=== PATIENT | male | born 1935 | race Caucasian/White ===

== ENCOUNTER 2019-06-13 10:09 | Day surgery (SDC) | payer MEDICARE, OTHER ==
[~2019-06-13] VITALS: Ht 165.1 cm; Wt 73.5 kg
[~2019-06-13 10:09] MED LIST: CARD60TA3 PO; COLA100C5 PO; IBUP-1114 PO; LOSA50TA88 PO; METF-881 PO; MONT10TA2 PO; MULTLIQ7 PO; NS 1,000 ML IV ONE; OMEP40CA97 PO; OPTI0.5D5 OP; PROAAER10 INH; ROSU20TA5 PO; SENNA PO
[2019-06-13] MEDS ORDERED: LIDOCAINE 2% INJ 100 MG/5 ML SDV (FOR ANES.) As Ordered ONE (10:50)
[2019-06-13] MEDS ORDERED: propofoL 200 MG/20 ML VIAL As Ordered ONE (10:50)
[2019-06-13] MEDS ORDERED: fentaNYL 100 MCG/2 ML INJECTION (J3010) As Ordered ONE (11:17)
--- NOTE | 2019-06-13 12:18 | ROOR ---
Patient Name: Tim Reilly Procedure Date: 06/13/2019 11:18 AM Date of : 1935 Age: 84 Room: [facility] Gender: Male Note Status: Finalized Procedure: Upper GI endoscopy Indications: Iron deficiency anemia Providers: Kodak Cabrera MD Referring MD: [facility], Admin. Requesting Provider: Medicines: Monitored Anesthesia Care Complications: No immediate complications. Procedure: Pre-Anesthesia Assessment: - Prior to the procedure, a History and Physical was performed, and patient medications and allergies were reviewed. The patient is competent. The risks and benefits of the procedure and the sedation options and risks were discussed with the patient. All questions were answered and informed consent was obtained. Patient identification and proposed procedure were verified by the physician, the nurse and the anesthesiologist in the procedure room. Mental Status Examination: alert and oriented. Airway Examination: normal oropharyngeal airway and neck mobility. Respiratory Examination: clear to auscultation. CV Examination: normal. Prophylactic Antibiotics: The patient does not require prophylactic antibiotics. Prior Anticoagulants: The patient has taken no previous anticoagulant or antiplatelet agents. ASA Grade Assessment: III - A patient with severe systemic disease. After reviewing the risks and benefits, the patient was deemed in satisfactory condition to undergo the procedure. The anesthesia plan was to use monitored anesthesia care (MAC). Immediately prior to administration of medications, the patient was re-assessed for adequacy to receive sedatives. The heart rate, respiratory rate, oxygen saturations, blood pressure, adequacy of pulmonary ventilation, and response to care were monitored throughout the procedure. The physical status of the patient was re-assessed after the procedure. The Endoscope was introduced through the mouth, and advanced to the second part of duodenum. The Endoscope was introduced through the mouth, and advanced to the second part of duodenum. The upper GI endoscopy was accomplished without difficulty. The patient tolerated the procedure well. Findings: LA Grade B (one or more mucosal breaks greater than 5 mm, not extending between the tops of two mucosal folds) esophagitis with no bleeding was found 34 to 38 cm from the incisors. A medium-sized hiatal hernia was present. A large, infiltrative and ulcerated, circumferential mass with oozing bleeding and stigmata of recent bleeding was found in the gastric antrum and at the pylorus. Biopsies were taken with a cold forceps for histology. Verification of patient identification for the specimen was done by the physician and nurse using the patient's name, date and medical record number. Estimated blood loss was minimal. A malignant-appearing, intrinsic severe stenosis was found in the prepyloric region of the stomach. This was non-traversed with regular endoscope, so an ultrathin scope used to traverse. Biopsies were taken with a cold forceps for histology. The second portion of the duodenum was normal. Impression: - LA Grade B reflux esophagitis. - Medium-sized hiatal hernia. 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 Biopsied. - Gastric stenosis was found in the prepyloric region of the stomach. Biopsied. - Normal second portion of the duodenum. Recommendation: - Patient has a contact number available for emergencies. The signs and symptoms of potential delayed complications were discussed with the patient. Return to normal activities tomorrow. Written discharge instructions were provided to the patient. - Full liquid diet, pureed diet and soft diet. - Continue present medications. - Use Protonix (pantoprazole) 40 mg PO twice daily - to be taken in morning (1/2 hour before breakfast) and at bedtime ( atleast 3 hours after last meal) for 4 weeks. - Return to GI clinic 1 - 2 weeks. Please call GI clinic @ [phone] for apppointment date and time. - Check hemogram with white blood cell count and platelets weekly. - Return to primary care physician as previously scheduled. Kodak Cabrera MD Kodak Cabrera MD 06/13/2019 12:18:31 PM Electronically signed by Kodak Cabrera MD Number of Addenda: 0 Note Initiated On: 06/13/2019 11:18 AM Estimated Blood Loss: Estimated blood loss was minimal.
[2019-06-13 12:25] VITALS: BP 155/83
--- NOTE | 2019-06-13 13:34 | ROOR ---
Patient Name: Tim Reilly Procedure Date: 06/13/2019 11:19 AM Date of : 1935 Age: 84 Room: [facility] Gender: Male Note Status: Finalized Procedure: Colonoscopy Indications: Iron deficiency anemia Providers: Kodak Cabrera MD Referring MD: [facility] Mickey ATK[facility], Admin. Requesting Provider: Medicines: Monitored Anesthesia Care Complications: No immediate complications. Procedure: Pre-Anesthesia Assessment: - Prior to the procedure, a History and Physical was performed, and patient medications and allergies were reviewed. The patient is competent. The risks and benefits of the procedure and the sedation options and risks were discussed with the patient. All questions were answered and informed consent was obtained. Patient identification and proposed procedure were verified by the physician, the nurse and the anesthesiologist in the procedure room. Mental Status Examination: alert and oriented. Airway Examination: normal oropharyngeal airway and neck mobility. Respiratory Examination: clear to auscultation. CV Examination: normal. Prophylactic Antibiotics: The patient does not require prophylactic antibiotics. Prior Anticoagulants: The patient has taken no previous anticoagulant or antiplatelet agents. ASA Grade Assessment: III - A patient with severe systemic disease. After reviewing the risks and benefits, the patient was deemed in satisfactory condition to undergo the procedure. The anesthesia plan was to use monitored anesthesia care (MAC). Immediately prior to administration of medications, the patient was re-assessed for adequacy to receive sedatives. The heart rate, respiratory rate, oxygen saturations, blood pressure, adequacy of pulmonary ventilation, and response to care were monitored throughout the procedure. The physical status of the patient was re-assessed after the procedure. The Colonoscope was introduced through the anus and advanced to the cecum, identified by appendiceal orifice and ileocecal valve. The colonoscopy was performed without difficulty. The patient tolerated the procedure well. The quality of the bowel preparation was poor. The ileocecal valve, appendiceal orifice, and rectum were photographed. Scope insertion time was 3 minutes. Scope withdrawal time was 6 minutes. The total duration of the procedure was 9 minutes. Findings: The perianal and digital rectal examinations were normal. A 4 mm polyp was found in the transverse colon. The polyp was sessile. The polyp was removed with a cold biopsy forceps. Resection and retrieval were complete. Verification of patient identification for the specimen was done by the physician and nurse using the patient's name, date and medical record number. Estimated blood loss was minimal. Copious quantities of semi-liquid stool was found from sigmoid to cecum, interfering with visualization. Lavage of the area was performed using a large amount of sterile water, resulting in incomplete clearance with fair visualization. There is no endoscopic evidence of bleeding in the entire colon. Multiple small and large-mouthed diverticula were found in the sigmoid colon. There was no evidence of diverticular bleeding. Non-bleeding external and internal hemorrhoids were found during retroflexion. The hemorrhoids were medium-sized. Impression: - Preparation of the colon was poor. - One 4 mm polyp in the transverse colon, removed with a cold biopsy forceps. Resected and retrieved. - Stool from sigmoid to cecum. - Moderate diverticulosis in the sigmoid colon. There was no evidence of diverticular bleeding. - Non-bleeding external and internal hemorrhoids. Recommendation: - Patient has a contact number available for emergencies. The signs and symptoms of potential delayed complications were discussed with the patient. Return to normal activities tomorrow. Written discharge instructions were provided to the patient. - Full liquid diet, pureed diet and soft diet. - Continue present medications. - Repeat colonoscopy is not recommended due to current age (66 years or older) for screening purposes and depending on clinical and functional status. - Return to GI clinic 1 - 2 weeks. Please call GI clinic @ [phone] for apppointment date and time. - Return to primary care physician. Kodak Cabrera MD Kodak Cabrera MD 06/13/2019 1:33:35 PM Electronically signed by Kodak Cabrera MD Number of Addenda: 0 Note Initiated On: 06/13/2019 11:19 AM Estimated Blood Loss: Estimated blood loss was minimal.
== END 2019-06-13 13:42 | disposition home or self-care (01) ==
LOC: M OPP 10:09
PROVIDERS: ATTEND Internal Medicine Gastroenterology
DX: K64.0 First degree hemorrhoids (principal); D12.3 Benign neoplasm of transverse colon; K57.30 Diverticulosis of large intestine without perforation or abscess without bleeding; D50.9 Iron deficiency anemia, unspecified; K21.0 Gastro-esophageal reflux disease with esophagitis; K44.9 Diaphragmatic hernia without obstruction or gangrene; D49.0 Neoplasm of unspecified behavior of digestive system; K31.1 Adult hypertrophic pyloric stenosis; Z79.84 Long term (current) use of oral hypoglycemic drugs; Z79.899 Other long term (current) drug therapy; Z88.5 Allergy status to narcotic agent; Z88.1 Allergy status to other antibiotic agents; Z88.8 Allergy status to other drugs, medicaments and biological substances; Z87.891 Personal history of nicotine dependence
CPT/HCPCS: 43239; 45380; 88305; J3010

== ENCOUNTER → 2019-06-20 | Outpatient (CLI) | payer MEDICARE, OTHER ==
[~2019-06-20] MED LIST changes: -NS 1,000 ML IV ONE
[2019-06-20 16:41] LABS: BASO # 0.1 10^3/uL (0.0-0.2); BASO % 1.2 % (0.0-1.0); EOS # 0.3 10^3/uL (0.0-0.5); EOS % 3.5 % (0.0-3.0); HEMATOCRIT 37.4 % (42.0-52.0); HEMOGLOBIN 11.3 g/dl (13.5-17.5); LYMPH # 1.1 10^3/uL (1.5-5.0); LYMPH % 13.9 % (24.0-44.0); MEAN CORPUSCULAR HEMOGLOBIN 26.1 pg (27.0-33.0); MEAN CORPUSCULAR HGB CONC 30.2 g/dl (32.0-36.5); MEAN CORPUSCULAR VOLUME 86.4 fl (80.0-96.0); MONO # 0.9 10^3/uL (0.0-0.8); MONO % 11.8 % (0.0-5.0); NEUTROPHILS # 5.4 10^3/uL (1.5-8.5); NEUTROPHILS % 69.3 % (36.0-66.0); PLATELET COUNT, AUTOMATED 243 10^3/uL (150-450); RED BLOOD COUNT 4.33 10^6/uL (4.30-6.10); WHITE BLOOD COUNT 7.7 10^3/uL (4.0-10.0)
[2019-06-20 17:09] LABS: PERCENT SATURATION 17.8 % (19.7-50.0)
== END ==
LOC: M LAB 14:57
PROVIDERS: ATTEND Internal Medicine Gastroenterology
DX: D50.9 Iron deficiency anemia, unspecified (principal)

== ENCOUNTER → 2019-07-02 | Outpatient (CLI) | payer MEDICARE, OTHER ==
[2019-07-02 14:17] LABS: BLOOD UREA NITROGEN 15 MG/DL (7-18); GLOMERULAR FILTRATION RATE > 60.0 (>35)
== END ==
LOC: M LAB 11:55
PROVIDERS: ATTEND Internal Medicine Gastroenterology
DX: D50.9 Iron deficiency anemia, unspecified (principal)

== ENCOUNTER → 2019-07-07 | Outpatient (CLI) | payer MEDICARE, OTHER ==
[~2019-07-07] MED LIST changes: +GASTROGRAFIN SOLUTION 30ML (Q9963) As Ordered ONE; +ISOVUE-370 76% 100ML VIAL (Q9967) As Ordered ONE; -MONT10TA2 PO; +MONT10TA4 PO
--- NOTE | 2019-07-07 17:39 | REP ---
Clinical: Iron-deficiency anemia. Technique: Axial contrast enhanced images of the abdomen using oral (per protocol) and 100 ml Isovue 370 intravenous contrast material with coronal and sagittal re-formations. Findings: Lung bases are clear. Visualized heart and pericardium normal. Liver, spleen, pancreas, collapsed gallbladder, bilateral adrenal glands and kidneys are normal. Incidental 9 mm simple right renal cyst noted. Hiatal hernia is identified and gastroesophageal junction and the stomach is moderately distended to the level of the pylorus. The remainder of the visualized small large bowel is unremarkable. No ascites. No adenopathy. Abdominal aorta without aneurysm or dissection. Musculoskeletal structures demonstrate age-related changes. Impression: 1. Small/moderate hiatal hernia. 2. Gastric distension to the level of a prominent pylorus warrants further investigation including upper GI exam and/or endoscopy. Electronically Signed by Tarik Walden MD 07/07/2019 05:31 P
== END ==
LOC: M RAD 15:29
PROVIDERS: ATTEND Internal Medicine Gastroenterology
DX: K44.9 Diaphragmatic hernia without obstruction or gangrene (principal); K31.89 Other diseases of stomach and duodenum; D50.9 Iron deficiency anemia, unspecified
CPT/HCPCS: 74160; Q9963; Q9967

== ENCOUNTER 2019-07-13 10:45 | Inpatient (IN) | payer MEDICARE, OTHER ==
[~2019-07-13] VITALS: Ht 165.1 cm; Wt 74.5 kg
[~2019-07-13 10:45] MED LIST changes: -GASTROGRAFIN SOLUTION 30ML (Q9963) As Ordered ONE; -ISOVUE-370 76% 100ML VIAL (Q9967) As Ordered ONE
[2019-07-13 11:05] VITALS: BP 128/78
[2019-07-13] MEDS ORDERED: DILT1TAB12 PO (11:53)
[2019-07-13] MEDS ORDERED: CLEAPOW10 PO (11:53)
[2019-07-13] MEDS ORDERED: IBUP40TA PO (11:53)
[2019-07-13] MEDS ORDERED: PANT-23 PO (11:53)
[2019-07-13] MEDS ORDERED: REFR0.5D8 OU (11:53)
[2019-07-13] MEDS ORDERED: REST0.05 OU (11:53)
[2019-07-13] MEDS ORDERED: METF-791 PO (11:53)
[2019-07-13] MEDS ORDERED: OMEP-221 PO (11:56)
[2019-07-13] MEDS ORDERED: D5W/0.45% SODIUM CHLORIDE 1,000 ML IV SCH (12:00)
[2019-07-13] MEDS: PANTOPRAZOLE 40MG INJ (PROTONIX) (C9113) IV SCH (12:03)
[2019-07-13 12:35] LABS: HEMATOCRIT 37.1 % (42.0-52.0); HEMOGLOBIN 11.7 g/dl (13.5-17.5); MEAN CORPUSCULAR HEMOGLOBIN 27.1 pg (27.0-33.0); MEAN CORPUSCULAR HGB CONC 31.5 g/dl (32.0-36.5); MEAN CORPUSCULAR VOLUME 86.1 fl (80.0-96.0); PLATELET COUNT, AUTOMATED 241 10^3/uL (150-450); RED BLOOD COUNT 4.31 10^6/uL (4.30-6.10); WHITE BLOOD COUNT 7.1 10^3/uL (4.0-10.0)
[2019-07-13 12:45] LABS: INR 0.99; PROTHROMBIN TIME 12.8 SECONDS (11.8-14.0)
--- NOTE | 2019-07-13 12:57 | REP ---
Clinical: Nasogastric tube placement. Technique: Two supine views of the abdomen and pelvis. Findings: A nasogastric tube is identified extending below the left hemidiaphragm. Moderate fecal stasis. No obvious bowel obstruction or perforation. No obvious organomegaly. Skeletal structures demonstrate age-related degenerative changes. Impression: Nasogastric tube in satisfactory position. Electronically Signed by Tarik Walden MD 07/13/2019 12:49 P
[2019-07-13 13:00] LABS: ALBUMIN 3.1 GM/DL (3.2-5.2); ALT/SGPT 11 U/L (12-78); BILIRUBIN,TOTAL 0.2 MG/DL (0.2-1.0); BLOOD UREA NITROGEN 14 MG/DL (7-18); CALCIUM LEVEL 9.1 MG/DL (8.8-10.2); CARBON DIOXIDE LEVEL 28 MEQ/L (21-32); CHLORIDE LEVEL 106 MEQ/L (98-107); CREATININE FOR GFR 0.82 MG/DL (0.70-1.30); GLOMERULAR FILTRATION RATE > 60.0 (>35); GLUCOSE, FASTING 145 MG/DL (70-100); POTASSIUM SERUM 4.5 MEQ/L (3.5-5.1); SODIUM LEVEL 140 MEQ/L (136-145); TOTAL PROTEIN 6.1 GM/DL (6.4-8.2)
[2019-07-13] MEDS ORDERED: GLUCAGON FOR INJ 1 MG VIAL (J1610) SC PRN (13:15)
[2019-07-13] MEDS ORDERED: ACETAMINOPHEN 650 MG SUPP PR PRN (13:15)
[2019-07-13] MEDS ORDERED: GLUCOSE 4 GM CHEW TABLET PO PRN (13:15)
[2019-07-13] MEDS ORDERED: ONDANSETRON 4MG/2ML VIAL (J2405) IV PRN (13:15)
[2019-07-13] MEDS ORDERED: DEXTROSE 50% 50 ML SYRINGE IV PRN (13:15)
--- NOTE | 2019-07-13 13:16 | HPEPDOC ---
General Date of Admission Jul 13, 2019 at 10:45 Date of Service: Jul 13, 2019 Chief Complaint The patient is a 84-year-old male admitted with a reason for visit of Gastric Outlet Obstruction. Source: Patient, Family Exam Limitations: No limitations Timing/Duration: Other Severity: Other (2 years, not applicable) Associated Symptoms: Other (stomach problems) History of Present Illness This is 84 years old white male with past medical history of diabetes mellitus, hypertension, hyperlipidemia, has been experiencing his stomach problems including regurgitation since last 2 years and was followed up by his [facility] care doctor and started on PPIs without any relief until the CAT scan was obtained which showed gastric outlet obstruction. Patient had a EGD done by Dr. Heriberto Chan found to have very edematous pyloric ulceration negative for malignancy but did not respond to PPI. Hence, he is been sent back to the hospitalist direct admission for repeat EGD and possible pyloric stent placement. Home Medications Scheduled Albuterol Sulfate (Proair Hfa) 8.5 Gm Hfa.aer.ad, 2 PUFF INH BID, (Reported) Cyclosporine (Restasis) 0.05% Droperette, 1 DROP OU BID, (Reported) Diltiazem HCl (Diltiazem HCl) 60 Mg Tablet, 60 MG PO BID, (Reported) Losartan Potassium (Losartan Potassium) 50 Mg Tablet, 50 MG PO DAILY, (Reported) Metformin HCl (Metformin HCl ER) 500 Mg Tab.er.24h, 500 MG PO DAILY, (Reported) TAKES AT NOON Montelukast Sodium (Montelukast Sodium) 10 Mg Tablet, 10 MG PO DAILY, (Reported) Multivit-Minerals/Ferrous Fum (Multivitamin Liquid) 9 Mg/15 Ml Liquid, 15 ML PO QPM, (Reported) Omeprazole (Omeprazole) 40 Mg Capsule.dr, 40 MG PO DAILY, (Reported) PATIENT AND STATE HE IS TAKING BOTH OMEPRAZOLE AND PANTOPRAZOLE Pantoprazole Sodium (Pantoprazole Sodium) 40 Mg Tablet.dr, 40 MG PO BID, (Reported) Polyethylene Glycol 3350 (Clearlax) 116 Gm Powder, 8.5 GM PO DAILY, (Reported) Rosuvastatin Calcium (Rosuvastatin Calcium) 20 Mg Tablet, 20 MG PO DAILY, (Reported) TAKES AT NOON Scheduled PRN Carboxymethylcellulose Sodium (Refresh Tears) 15 Ml Drops, 1 DROP OU QID PRN for DRY EYES, (Reported) Ibuprofen (Ibuprofen) 400 Mg Tablet, 400 MG PO TID PRN for PAIN, (Reported) Allergies Coded Allergies: cephalexin (Verified Allergy, Intermediate, rash, 07/11/19) ciprofloxacin (Verified Allergy, Mild, rash, 07/11/19) doxycycline (Verified Allergy, Mild, rash, 07/11/19) Gadolinium-Containing Contrast Medi (Verified Allergy, Unknown, rash, 07/11/19) codeine (Verified Adverse Reaction, Unknown, didnt sleep for days, 07/11/19) Past Medical History Medical History Diabetes mellitus, hypertension, hyperlipidemia Surgical History None Family History Significant Family History: No pertinent family hx Social History * Smoker: former Smoker Alcohol: Denies Drugs: denies A-FIB/CHADSVASC A-FIB History Current/History of A-Fib/PAF?: No Review of Systems Constitutional: Denies: Chills, Fever, Malaise, Night Sweats, Weakness, Fatigue, Weight Loss, Lethargy, Other Eyes: Denies: Pain, Vision change, Conjunctivae inflammation, Eyelid inflammation, Redness, Other ENT: Denies: Head Aches, Ear Pain, Dysphagia, Sinus Congestion, Post Nasal Drip, Sore Throat, Epistaxis, Other Symptoms Cardiovascular: Denies: Chest Pain, Palpitations, Orthopnea, Paroxysmal Noc. Dyspnea, Edema, Lt Headedness, Other Symptoms Gastrointestinal: Reports: Other Symptoms (regurgitation,slow absorption and stomach distention) Genitourinary: Denies: Dysuria, Frequency, Incontinence, Hematuria, Retention, Other Symptoms Hematologic: Denies: Bruising, Bleeding Excessively, Petecchia, Purpura, Enl arged Lymph Nodes, Other Hematologic Endocrine: Denies: Polydipsia, Polyphagia, Polyuria, Heat Intolerance, Cold Intolerance, Other Endocrine Sx Musculoskeletal: Denies: Neck Pain, Back Pain, Shoulder Pain, Arm Pain, Hand Pain, Leg Pain, Foot Pain, Joint Pain, Muscle Pain, Spasms, Other Symptoms Neurological: Denies: Weakness, Numbness, Incoordination, Change in speech, Confusion, Seizures, Other Symptoms Psych: Denies: Mood Normal, Anxiety, Depression, Memory Issues, Thoughts of Self Harm, Anger, Thoughts of Harming Other, Other Psych Physical Examination General Exam: Positive: Alert, Cooperative Eye Exam: Positive: PERRLA, Conjunctiva & lids normal ENT Exam: Positive: Atraumatic, Mucous membr. moist/pink Neck Exam: Positive: Supple Chest Exam: Positive: Clear to auscultation Heart Exam: Positive: Rate Normal, Normal S1, Normal S2 Abdomen Exam: Positive: Normal bowel sounds Extremity Exam: Positive: Normal pulses Skin Exam: Positive: Nl turgor and temperature Neuro Exam: Positive: Sensation Intact, Cranial Nerves 3-12 NL Psych Exam: Positive: Mood NL, Oriented x 3 Vital Signs Vital Signs Date Time Temp Pulse Resp B/P (MAP) Pulse Ox O2 Delivery O2 Flow Rate FiO2 07/13/19 11:05 97.2 68 18 128/78 (95) 97 Room Air Laboratory Data Labs 24H Laboratory Tests 2 07/13/19 12:23: Nucleated Red Blood Cells % (auto) 0.0, Prothrombin Time 12.8, Prothromb Time International Ratio 0.99, Anion Gap 6L, Glomerular Filtration Rate > 60.0, Calci um Level 9.1, Total Bilirubin 0.2, Aspartate Amino Transf (AST/SGOT) 13, Alanine Aminotransferase (ALT/SGPT) 11L, Alkaline Phosphatase 63, Total Protein 6.1L, Albumin 3.1L, Albumin/Globulin Ratio 1.03 CBC/BMP Laboratory Tests 07/13/19 12:23 Problems (1) Partial gastric outlet obstruction Status: Acute Problem Text: 84 years old white male with past medical history of hyperlipidemia, hypertension, diabetes mellitus, recently diagnosed with partial gastric outlet obstruction was sent by Dr. Heriberto Chan for direct admission to schedule him for EGD and stent placement tomorrow. Admit patient to Medr floor Half-normal saline 100 mL per hour Protonix 40 mg IV every 12 hours Zofran 4 mg IV every 4 hours when necessary Tylenol suppository for pain and fever Patient is completely nothing by mouth NG tube in place with low intermittent suction Will also call surgical consult with Dr. Fang to be on the case DVT prophylaxis with bilateral SCDs Activity as Tolerated (2) Hyperlipidemia Status: Chronic Problem Text: Hold by mouth meds (3) HTN (hypertension) Status: Chronic Problem Text: Hold by mouth meds Needed. Will start Cardizem as IV dose In the meantime, will monitor without any medication (4) Diabetes mellitus Status: Chronic Problem Text: Hold all by mouth meds Fingerstick blood sugar every 6 hours with coverage Plan / VTE VTE Prophylaxis Ordered?: Yes KRISTIN HILL MD Jul 13, 2019 13:16
[2019-07-13 14:00] VITALS: BP 126/72
[2019-07-13] MEDS: NS 0.45% 1,000 ML IV SCH (14:19)
[2019-07-13] MEDS: HumaLOG INSULIN (NovoLOG) PER UNIT SC SCH (18:00)
[2019-07-13] MEDS: ALBUTEROL 90 MCG/ACT 8GM HFA INHALER INH SCH (20:24)
[2019-07-13 22:00] VITALS: BP 136/78
[2019-07-14] VITALS (9 sets, daily range): BP systolic 128–154; BP diastolic 79–90
[2019-07-14] MEDS: PANTOPRAZOLE 40MG INJ (PROTONIX) (C9113) IV SCH ×2 (00:35→11:11)
[2019-07-14] MEDS: NS 0.45% 1,000 ML IV SCH ×3 (00:35→18:04)
[2019-07-14] MEDS: HumaLOG INSULIN (NovoLOG) PER UNIT SC SCH ×4 (05:45→17:54)
[2019-07-14 06:57] LABS: HEMATOCRIT 35.6 % (42.0-52.0); HEMOGLOBIN 11.7 g/dl (13.5-17.5); MEAN CORPUSCULAR HEMOGLOBIN 27.9 pg (27.0-33.0); MEAN CORPUSCULAR HGB CONC 32.9 g/dl (32.0-36.5); PLATELET COUNT, AUTOMATED 244 10^3/uL (150-450); RED BLOOD COUNT 4.19 10^6/uL (4.30-6.10)
[2019-07-14 07:21] LABS: ALT/SGPT 12 U/L (12-78); BILIRUBIN,TOTAL 0.4 MG/DL (0.2-1.0); BLOOD UREA NITROGEN 10 MG/DL (7-18); CALCIUM LEVEL 8.8 MG/DL (8.8-10.2); CARBON DIOXIDE LEVEL 25 MEQ/L (21-32); CHLORIDE LEVEL 108 MEQ/L (98-107); CREATININE FOR GFR 0.83 MG/DL (0.70-1.30); GLOMERULAR FILTRATION RATE > 60.0 (>35); GLUCOSE, FASTING 127 MG/DL (70-100); MAGNESIUM LEVEL 2.3 MG/DL (1.8-2.4); POTASSIUM SERUM 4.1 MEQ/L (3.5-5.1); SODIUM LEVEL 139 MEQ/L (136-145); TOTAL PROTEIN 6.3 GM/DL (6.4-8.2)
[2019-07-14] MEDS: ALBUTEROL 90 MCG/ACT 8GM HFA INHALER INH SCH ×2 (10:12→18:34)
--- NOTE | 2019-07-14 10:57 | IPNPDOC ---
Subjective Date Seen The patient was seen on 07/14/19. Subjective Chief Complaint/HPI Patient is comfortable. NG tube in place scheduled for EGD today General: Denies: ROS Unobtainable, Chills, Night Sweats, Fatigue, Malaise, Normal Appetite, Other Symptoms Constitutional: Denies: Chills, Fever, Malaise, Night Sweats, Weakness, Fatigue, Weight Loss, Lethargy, Other Pulmonary: Denies: Dyspnea, Cough, Pleuritic Chest Pain, Other Symptoms Cardiovascular: Denies: Chest Pain, Palpitations, Orthopnea, Paroxysmal Noc. Dyspnea, Edema, Lt Headedness, Other Symptoms Gastrointestinal: Denies: Nausea, Vomiting, Abdominal Pain, Diarrhea, Constipation, Melena, Hematochezia, Other Symptoms Musculoskeletal: Denies: Neck Pain, Back Pain, Shoulder Pain, Arm Pain, Hand Pain, Leg Pain, Foot Pain, Joint Pain, Muscle Pain, Spasms, Other Symptoms Neurological: Denies: Weakness, Numbness, Incoordination, Change in speech, Confusion, Seizures, Other Symptoms Objective Physical Examination Neck Exam: Positive: Supple Chest Exam: Positive: Clear to auscultation Heart Exam: Positive: Rate Normal, Normal S1, Normal S2 Abdomen Exam: Positive: Normal bowel sounds Extremity Exam: Positive: Normal pulses Skin Exam: Positive: Nl turgor and temperature Neuro Exam: Positive: Sensation Intact, Cranial Nerves 3-12 NL Assessment /Plan Problems (1) Partial gastric outlet obstruction Status: Acute Problem Text: 84 years old white male with past medical history of hyperlipidemia, hypertension, diabetes mellitus, recently diagnosed with partial gastric outlet obstruction was sent by Dr. Heriberto Chan for direct admission to schedule him for EGD and stent placement today. Half-normal saline 100 mL per hour Protonix 40 mg IV every 12 hours Zofran 4 mg IV every 4 hours when necessary Tylenol suppository for pain and fever Patient is completely nothing by mouth pt is scheduled for EGD and possible pyloric stent placement today by GI Dr. Copeland was called yesterday for consultation surgical evaluation (2) HTN (hypertension) Status: Chronic Problem Text: Will start Cardizem as IV dose In the meantime, will monitor without any medication (3) Hyperlipidemia Status: Chronic Problem Text: Hold home meds Restart once patient is taken oral meds (4) Diabetes mellitus Status: Chronic Problem Text: Hold all by mouth meds Fingerstick blood sugar every 6 hours with coverage Plan/VTE VTE Prophylaxis Ordered?: Yes VS, I&O, 24H, Fishbone Vital Signs/I&O Vital Signs Date Time Temp Pulse Resp B/P (MAP) Pulse Ox O2 Delivery O2 Flow Rate FiO2 07/14/19 08:00 97.8 73 20 154/80 (104) 94 07/14/19 06:00 Room Air I&O- Last 24 Hours up to 6 AM 07/14/19 06:00 Intake Total 1900 ml Output Total 1800 ml Balance 100 ml Laboratory Data 24H LABS Laboratory Tests 2 07/13/19 12:23: Nucleated Red Blood Cells % (auto) 0.0, Prothrombin Time 12.8, Prothromb Time International Ratio 0.99, Anion Gap 6L, Glomerular Filtration Rate > 60.0, Calcium Level 9.1, Total Bilirubin 0.2, Aspartate Amino Transf (AST/SGOT) 13, Alanine Aminotransferase (ALT/SGPT) 11L, Alkaline Phosphatase 63, Total Protein 6.1L, Albumin 3.1L, Albumin/Globulin Ratio 1.03 07/13/19 18:19: Bedside Glucose (Misc Panel) 99 07/14/19 00:10: Bedside Glucose (Misc Panel) 116H 07/14/19 05:30: Bedside Glucose (Misc Panel) 135H 07/14/19 06:20: Nucleated Red Blood Cells % (auto) 0.0, Anion Gap 6L, Glomerular Filtration Rate > 60.0, Calcium Level 8.8, Magnesium Level 2.3, Total Bilirubin 0.4#, Aspartate Amino Transf (AST/SGOT) 14, Alanine Aminotransferase (ALT/SGPT) 12, Alkaline Phosphatase 65, Total Protein 6.3L, Albumin 3.0L, Albumin/Globulin Ratio 0.91L CBC/BMP Laboratory Tests 07/13/19 12:23 07/14/19 06:20 KRISTIN HILL MD Jul 14, 2019 10:57
--- NOTE | 2019-07-14 13:38 | GIPN ---
[facility] GI Progress Note GI Progress Note DATE: Jul 14, 2019 Interval history: Patient was recently seen in GI clinic for persistent symptoms of abdominal bloating, inability to tolerate oral diet. So patient was recommended CT abdomen and repeat EGD. The CT scan showed significantly distended stomach and pyloric region stenosis, no obvious distant metastatic lesions and no lymphadenopathy. Patient was recommended admission with NG tube placement, lavage to clear gastric contents prior to planned EGD. Patient currently denies any new GI sym ptoms. Exam: Vitals: reviewed General: Alert and oriented x 3, not in distress. NG tube in place. Abdomen: non-distended, no surgical scars, soft, non-tender, no palpable masses, normal bowel sounds heard. Labs: reviewed. Imaging: reviewed. 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 Recommendations: -- Patient educated about the test results, possible differential diagnoses and All questions answered. -- Continue NPO for now. -- IV PPI for now. -- In view of the persistent gastric outlet obstruction features even on maximum acid suppressive therapy, Patient is recommended EGD with possible dilation +/- pyloric stent placement. -- The procedure, indications, risks (bleeding, perforation, infection, hypotension, respiratory depression, allergy, need for endotracheal intubation, surgery, colostomy, cardiac arrest, even ), benefits, limitations (e.g., missing a lesion), and all other alternatives (including no intervention) were explained to the patient who understood and agreed for the procedure. -- Follow operative notes for post procedure recommendations. Plan of care discussed with patient and primary team. Patient verbalized understanding and agreed with the plan. Allergies Coded Allergies: cephalexin (Verified Allergy, Intermediate, rash, 07/11/19) ciprofloxacin (Verified Allergy, Mild, rash, 07/11/19) doxycycline (Verified Allergy, Mild, rash, 07/11/19) Gadolinium-Containing Contrast Medi (Verified Allergy, Unknown, rash, 07/11/19) codeine (Verified Adverse Reaction, Unknown, didnt sleep for days, 07/11/19) Current Medications Current Medications Medications (Trade) Dose Ordered Sig/Bette Route PRN Reason Start Time Stop Time Status Last Admin Dose Admin Acetaminophen (Tylenol Suppository) 650 mg Q4HP PRN [place] PAIN / FEVER 07/13/19 13:15 Albuterol Sulfate (Proventil, Ventolin Hfa) 2 puff BID INH 07/13/19 21:00 07/14/19 10:12 Dextrose (Dextrose 50%) 25 ml ASDIRECTED PRN IV SEE LABEL COMMENTS 07/13/19 13:15 Dextrose/Sodium Chloride 1,000 ml @ 100 mls/hr Q10H IV 07/13/19 12:00 07/13/19 13:07 DC 07/13/19 11:56 Glucagon (Glucagon) 1 mg ASDIRECTED PRN SC SEE LABEL COMMENTS 07/13/19 13:15 Glucose (Glucose) 16 GM ASDIRECTED PRN PO SEE LABEL COMMENTS 07/13/19 13:15 Home Med (Med Rec Complete!) ASDIRECTED XX 07/13/19 12:00 07/13/19 12:03 DC Insulin Human Lispro (HumaLOG INSULIN) SEE PROTOCOL TABLE Q6H SC 07/13/19 18:00 Ondansetron HCl (ZOFRAN INJection) 4 mg Q4HP PRN IV NAUSEA OR VOMITING 07/13/19 13:15 Pantoprazole Sodium (Protonix) 40 mg Q12H IV 07/13/19 12:00 07/14/19 11:11 Sodium Chloride 1,000 ml @ 100 mls/hr Q10H IV 07/13/19 14:00 07/14/19 10:44 VS,Fishbone, I+O VS, Fishbone, I+O Laboratory Tests 07/14/19 06:20 Vital Signs Date Time Temp Pulse Resp B/P (MAP) Pulse Ox O2 Delivery O2 Flow Rate FiO2 07/14/19 08:00 97.8 73 20 154/80 (104) 94 07/14/19 06:00 Room Air I&O- Last 24 Hours up to 6 AM 07/14/19 06:00 Intake Total 1900 ml Output Total 1800 ml Balance 100 ml GORDON WASHBURN MD Jul 14, 2019 13:38
--- NOTE | 2019-07-14 17:19 | REP ---
Clinical: ERCP. Technique: Intraoperative fluoroscopic imaging using portable C-arm technique. Findings: Images from the attempted ERCP examination demonstrate distended loops of bowel and endoscope maintained within the stomach. Total fluoroscopic time 21 seconds. Impression: Images demonstrate attempted ERCP. Moderately dilated distended loops of bowel noted. Electronically Signed by Tarik Walden MD 07/14/2019 05:10 P
[2019-07-14] MEDS ORDERED: ONDANSETRON 4MG/2ML VIAL (J2405) IV PRN (17:45)
[2019-07-14] MEDS: LR 1,000 ML IV SCH ×2 (17:45→17:54)
[2019-07-14] MEDS: MEROPENEM INJ 1 GM in IV 1 EA IV SCH (18:04)
[2019-07-14 18:17] LABS: BASO # 0.1 10^3/uL (0.0-0.2); BASO % 0.8 % (0.0-1.0); EOS # 0.1 10^3/uL (0.0-0.5); EOS % 0.8 % (0.0-3.0); HEMATOCRIT 38.1 % (42.0-52.0); HEMOGLOBIN 12.2 g/dl (13.5-17.5); LYMPH # 0.9 10^3/uL (1.5-5.0); LYMPH % 9.4 % (24.0-44.0); MEAN CORPUSCULAR HEMOGLOBIN 27.4 pg (27.0-33.0); MEAN CORPUSCULAR VOLUME 85.4 fl (80.0-96.0); MONO # 1.1 10^3/uL (0.0-0.8); MONO % 10.9 % (0.0-5.0); NEUTROPHILS # 7.6 10^3/uL (1.5-8.5); NEUTROPHILS % 77.8 % (36.0-66.0); PLATELET COUNT, AUTOMATED 233 10^3/uL (150-450); RED BLOOD COUNT 4.46 10^6/uL (4.30-6.10); WHITE BLOOD COUNT 9.7 10^3/uL (4.0-10.0)
[2019-07-14 18:28] LABS: INR 1.13; PROTHROMBIN TIME 14.2 SECONDS (11.8-14.0)
[2019-07-14 18:32] LABS: BLOOD UREA NITROGEN 11 MG/DL (7-18); CARBON DIOXIDE LEVEL 23 MEQ/L (21-32); CHLORIDE LEVEL 109 MEQ/L (98-107); GLOMERULAR FILTRATION RATE > 60.0 (>35); GLUCOSE, FASTING 135 MG/DL (70-100); POTASSIUM SERUM 3.9 MEQ/L (3.5-5.1); SODIUM LEVEL 138 MEQ/L (136-145)
[2019-07-15] MEDS: HumaLOG INSULIN (NovoLOG) PER UNIT SC SCH ×4 (00:09→17:53)
[2019-07-15] MEDS: PANTOPRAZOLE 40MG INJ (PROTONIX) (C9113) IV SCH ×2 (00:09→11:55)
[2019-07-15] MEDS: MEROPENEM INJ 1 GM in IV 1 EA IV SCH ×3 (02:03→18:24)
[2019-07-15] MEDS: NS 0.45% 1,000 ML IV SCH ×2 (05:31→15:28)
[2019-07-15 06:00] VITALS: BP 143/78
[2019-07-15] MEDS: ALBUTEROL 90 MCG/ACT 8GM HFA INHALER INH SCH ×2 (07:50→20:21)
[2019-07-15 10:00] VITALS: BP 142/83
[2019-07-15 10:37] LABS: BASO # 0.1 10^3/uL (0.0-0.2); BASO % 0.6 % (0.0-1.0); EOS # 0.1 10^3/uL (0.0-0.5); EOS % 0.5 % (0.0-3.0); HEMATOCRIT 38.7 % (42.0-52.0); HEMOGLOBIN 12.5 g/dl (13.5-17.5); LYMPH # 0.7 10^3/uL (1.5-5.0); LYMPH % 6.9 % (24.0-44.0); MEAN CORPUSCULAR HEMOGLOBIN 27.3 pg (27.0-33.0); MEAN CORPUSCULAR HGB CONC 32.3 g/dl (32.0-36.5); MEAN CORPUSCULAR VOLUME 84.5 fl (80.0-96.0); NEUTROPHILS # 8.3 10^3/uL (1.5-8.5); NEUTROPHILS % 81.5 % (36.0-66.0); PLATELET COUNT, AUTOMATED 248 10^3/uL (150-450); RED BLOOD COUNT 4.58 10^6/uL (4.30-6.10); WHITE BLOOD COUNT 10.1 10^3/uL (4.0-10.0)
[2019-07-15 11:07] LABS: BLOOD UREA NITROGEN 11 MG/DL (7-18); CALCIUM LEVEL 9.2 MG/DL (8.8-10.2); CARBON DIOXIDE LEVEL 25 MEQ/L (21-32); CHLORIDE LEVEL 105 MEQ/L (98-107); CREATININE FOR GFR 0.79 MG/DL (0.70-1.30); GLOMERULAR FILTRATION RATE > 60.0 (>35); GLUCOSE, FASTING 85 MG/DL (70-100); POTASSIUM SERUM 3.8 MEQ/L (3.5-5.1); SODIUM LEVEL 136 MEQ/L (136-145)
--- NOTE | 2019-07-15 11:21 | IPNPDOC ---
Subjective Date Seen The patient was seen on 07/15/19. Subjective Chief Complaint/HPI Seen and examined at bedside, doing well, minimal abdominal pain, some nausea. General: Reports: Normal Appetite; Denies: Chills, Night Sweats, Fatigue, Malaise Constitutional: Denies: Chills, Fever, Night Sweats Eyes: Denies: Pain, Vision change ENT: Denies: Head Aches, Ear Pain, Dysphagia Skin: Denies: Rash, Lesions, Breakdown Pulmonary: Denies: Dyspnea, Cough Cardiovascular: Denies: Chest Pain, Palpitations, Orthopnea, Paroxysmal Noc. Dyspnea, Lt Headedness Gastrointestinal: Denies: Nausea, Vomiting, Abdominal Pain, Diarrhea, Constipation Genitourinary: Denies: Dysuria, Frequency, Incontinence, Retention Hematologic: Denies: Bruising, Bleeding Excessively Musculoskeletal: Denies: Neck Pain, Back Pain, Joint Pain, Muscle Pain, Spasms Neurological: Denies: Weakness, Numbness, Change in speech, Confusion Psych: Reports: Mood Normal; Denies: Depression, Memory Issues Objective Physical Examination General Exam: Positive: Alert, No Acute Distress Eye Exam: Positive: PERRLA, Conjunctiva & lids normal, EOMI; Negative: Sclera icteric ENT Exam: Positive: Atraumatic, Mucous membr. moist/pink, Pharynx Normal, Other ENT (NGT) Neck Exam: Positive: Supple Chest Exam: Positive: Clear to auscultation Heart Exam: Positive: Rate Normal, Normal S1, Normal S2 Telemetry: Positive: No significant arrhythmia Abdomen Exam: Positive: Normal bowel sounds Male Exam: Positive: Normal Genital Exam Extremity Exam: Positive: Normal pulses Skin Exam: Positive: Nl turgor and temperature Neuro Exam: Positive: Sensation Intact, Cranial Nerves 3-12 NL Psych Exam: Positive: Mental status NL, Mood NL, Oriented x 3 Assessment /Plan Assessment 1. partial gastric outlet obstruction - EGD attempted yesterday, unable to complete. - surgical consultation Dr. Copeland. - continue NGT/NPO, zofran prn, IVF. 2. hypertension - cardizem IV, monitor. 3. hyperlipidemia - hold home meds. - can restart once taking oral meds. 4. DM2 -- FSBS/SSI coverage. Plan/VTE VTE Prophylaxis Ordered?: Yes VS, I&O, 24H, Fishbone Vital Signs/I&O Vital Signs Date Time Temp Pulse Resp B/P (MAP) Pulse Ox O2 Delivery O2 Flow Rate FiO2 07/15/19 10:00 97.9 80 20 142/83 (102) 94 Room Air I&O- Last 24 Hours up to 6 AM 07/15/19 06:00 Intake Total 1050 ml Output Total 2400 ml Balance -1350 ml Laboratory Data 24H LABS Laboratory Tests 2 07/14/19 11:43: Bedside Glucose (Misc Panel) 120H 07/14/19 17:47: Bedside Glucose (Misc Panel) 127H 07/14/19 18:01: Immature Granulocyte % (Auto) 0.3, Neutrophils (%) (Auto) 77.8H, Lymphocytes (%) (Auto) 9.4L, Monocytes (%) (Auto) 10.9H, Eosinophils (%) (Auto) 0.8, Basophils (%) (Auto) 0.8, Neutrophils # (Auto) 7.6, Lymphocytes # (Auto) 0.9L, Monocytes # (Auto) 1.1H, Eosinophils # (Auto) 0.1, Basophils # (Auto) 0.1, Nucleated Red Blood Cells % (auto) 0.0, Prothrombin Time 14.2H, Prothromb Time International Ratio 1.13, Anion Gap 6L, Glomerular Filtration Rate > 60.0, Calcium Level 9.0 07/14/19 23:59: Bedside Glucose (Misc Panel) 128H 07/15/19 06:15: Bedside Glucose (Misc Panel) 110 07/15/19 10:24: Immature Granulocyte % (Auto) 0.5, Neutrophils (%) (Auto) 81.5H, Lymphocytes (%) (Auto) 6.9L, Monocytes (%) (Auto) 10.0H, Eosinophils (%) (Auto) 0.5, Basophils (%) (Auto) 0.6, Neutrophils # (Auto) 8.3, Lymphocytes # (Auto) 0.7L, Monocytes # (Auto) 1.0H, Eosinophils # (Auto) 0.1, Basophils # (Auto) 0.1, Nucleated Red Blood Cells % (auto) 0.0, Anion Gap 6L, Glomerular Filtration Rate > 60.0, Calcium Level 9.2 CBC/BMP Laboratory Tests 07/14/19 18:01 07/15/19 10:24 JEFFERY BURK MD Jul 15, 2019 11:21
[2019-07-15 14:00] VITALS: BP 147/84
[2019-07-15 22:00] VITALS: BP 142/82
[2019-07-16] MEDS: PANTOPRAZOLE 40MG INJ (PROTONIX) (C9113) IV SCH ×3 (00:55→23:37)
[2019-07-16] MEDS: NS 0.45% 1,000 ML IV SCH ×3 (01:59→21:52)
[2019-07-16] MEDS: MEROPENEM INJ 1 GM in IV 1 EA IV SCH ×3 (01:59→18:25)
[2019-07-16 06:00] VITALS: BP 137/87
[2019-07-16] MEDS: HumaLOG INSULIN (NovoLOG) PER UNIT SC SCH ×5 (06:00→23:38)
[2019-07-16 06:07] LABS: HEMOGLOBIN 12.2 g/dl (13.5-17.5); MEAN CORPUSCULAR HEMOGLOBIN 27.7 pg (27.0-33.0); MEAN CORPUSCULAR VOLUME 84.1 fl (80.0-96.0); PLATELET COUNT, AUTOMATED 199 10^3/uL (150-450)
[2019-07-16 06:34] LABS: BLOOD UREA NITROGEN 11 MG/DL (7-18); CALCIUM LEVEL 8.5 MG/DL (8.8-10.2); CARBON DIOXIDE LEVEL 21 MEQ/L (21-32); CHLORIDE LEVEL 107 MEQ/L (98-107); CREATININE FOR GFR 0.75 MG/DL (0.70-1.30); GLOMERULAR FILTRATION RATE > 60.0 (>35); GLUCOSE, FASTING 94 MG/DL (70-100); POTASSIUM SERUM 3.4 MEQ/L (3.5-5.1); SODIUM LEVEL 135 MEQ/L (136-145)
[2019-07-16] MEDS: ALBUTEROL 90 MCG/ACT 8GM HFA INHALER INH SCH ×2 (09:00→21:47)
--- NOTE | 2019-07-16 11:21 | IPNPDOC ---
Subjective Date Seen The patient was seen on 07/16/19. Subjective Chief Complaint/HPI seen and examined at bedside, no specific complaints today. General: Reports: Normal Appetite; Denies: Chills, Night Sweats, Fatigue, Malaise Constitutional: Denies: Chills, Fever, Night Sweats Eyes: Denies: Pain, Vision change ENT: Denies: Head Aches, Ear Pain, Dysphagia Skin: Denies: Rash, Lesions, Breakdown Pulmonary: Denies: Dyspnea, Cough Cardiovascular: Denies: Chest Pain, Palpitations, Orthopnea, Paroxysmal Noc. Dyspnea, Lt Headedness Gastrointestinal: Denies: Nausea, Vomiting, Abdominal Pain, Diarrhea, Constipation Genitourinary: Denies: Dysuria, Frequency, Incontinence, Retention Hematologic: Denies: Bruising, Bleeding Excessively Musculoskeletal: Denies: Neck Pain, Back Pain, Joint Pain, Muscle Pain, Spasms Neurological: Denies: Weakness, Numbness, Change in speech, Confusion Psych: Reports: Mood Normal; Denies: Depression, Memory Issues Objective Physical Examination General Exam: Positive: Alert, No Acute Distress Eye Exam: Positive: PERRLA, Conjunctiva & lids normal, EOMI; Negative: Sclera icteric ENT Exam: Positive: Atraumatic, Mucous membr. moist/pink, Pharynx Normal, Other ENT (NGT) Neck Exam: Positive: Supple Chest Exam: Positive: Clear to auscultation Heart Exam: Positive: Rate Normal, Normal S1, Normal S2 Telemetry: Positive: No significant arrhythmia Abdomen Exam: Positive: Normal bowel sounds Male Exam: Positive: Normal Genital Exam Extremity Exam: Positive: Normal pulses Skin Exam: Positive: Nl turgor and temperature Neuro Exam: Positive: Sensation Intact, Cranial Nerves 3-12 NL Psych Exam: Positive: Mental status NL, Mood NL, Oriented x 3 Assessment /Plan Assessment 1. partial gastric outlet obstruction - seen by surgery Dr. Copeland. - continue NGT/NPO, zofran prn, IVF. - plan for MRCP today. 2. hypertension - cardizem IV, monitor. 3. hyperlipidemia - hold home meds. - can restart once taking oral meds. 4. DM2 -- FSBS/SSI coverage. Plan/VTE VTE Prophylaxis Ordered?: Yes VS, I&O, 24H, Fishbone Vital Signs/I&O Vital Signs Date Time Temp Pulse Resp B/P (MAP) Pulse Ox O2 Delivery O2 Flow Rate FiO2 07/16/19 06:00 98.0 88 19 137/87 (104) 94 Room Air I&O- Last 24 Hours up to 6 AM 07/16/19 06:00 Intake Total 2450 ml Output Total 2025 ml Balance 425 ml Laboratory Data 24H LABS Laboratory Tests 2 07/15/19 11:39: Bedside Glucose (Misc Panel) 91 07/15/19 17:52: Bedside Glucose (Misc Panel) 100 07/15/19 23:46: Bedside Glucose (Misc Panel) 101 07/16/19 05:53: Nucleated Red Blood Cells % (auto) 0.0, Anion Gap 7L, Glomerular Filtration Rate > 60.0, Calcium Level 8.5L 07/16/19 06:27: Bedside Glucose (Misc Panel) 103 CBC/BMP Laboratory Tests 07/16/19 05:53 JEFFERY BURK MD Jul 16, 2019 11:21
[2019-07-16] MEDS ORDERED: PROHANCE 279.3MG/ML 15ML VIAL (A9576) As Ordered ONE (11:44)
[2019-07-16] MEDS ORDERED: diphenhydrAMINE CREAM 30GM TOP PRN (12:00)
[2019-07-16 14:00] VITALS: BP 140/79
--- NOTE | 2019-07-16 14:00 | REP ---
ABDOMEN/PANCREAS MRI STUDY WITHOUT AND WITH IV CONTRAST: HISTORY: Pyloric channel mass. Evaluate for malignancy, adenopathy. Comparison CT study July 07, 2019. TECHNIQUE: Axial and coronal imaging planes are utilized. T1- and T2-weighted sequences include spin echo, fast spin echo, gradient echo, in- and [id number], and dynamically acquired sequential post contrast images. The contrast enhancement dose is 15 mL of intravenous ProHance. MRI FINDINGS: There is an irregular circumferential pyloric channel/distal antral mass narrowing the gastric outlet as seen on CT study. On the lesser curvature side there is up to 2.2 cm of mural thickening. I do not resolve any regional lymphadenopathy. There are multiple septated appearing cystic areas in the pancreatic body and head which do not appear to be related. The largest of these is in the body of the pancreas measuring 2.3 cm in greatest diameter. No pancreatic mass lesion is identified. The posterior aspect of the pyloric mass is contiguous with the anterior margin of the pancreatic head superiorly I cannot resolve a fat plane between the mass and the adjacent pancreas and this could reflect invasion. This area of the pancreas is just lateral to the septated cyst described above. Superiorly, there is a visible celiac axis lymph node which is unchanged compared with the CT study and at 7-8 mm in short axis dimension. No adrenal lesion is seen. No other visible lymph nodes are seen by MRI. There are multiple tiny subcentimeter liver cysts. No biliary ductal dilation is seen. No filling defect is noted in the gallbladder. There is a moderate amount of ingested material in the stomach. A tiny cyst is seen in the spleen. 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 No definite regional adenopathy. I cannot separate the posterior wall of the mass from the anterosuperior wall of the pancreatic head. There are incidental scattered small pancreatic cysts. Multiple tiny hepatic cysts. Electronically Signed by oJrje Lyman MD 07/16/2019 04:28 P
[2019-07-16 22:00] VITALS: BP 138/85
[2019-07-17] VITALS (11 sets, daily range): BP systolic 109–149; BP diastolic 62–81
[2019-07-17] MEDS: KCL 10MEQ/100ML SWI (KRUN) 10 MEQ in IV 1 EA IV SCH ×3 (00:38→04:00)
[2019-07-17] MEDS: MEROPENEM INJ 1 GM in IV 1 EA IV SCH ×2 (01:44→09:44)
[2019-07-17] MEDS ORDERED: fentaNYL 100 MCG/2 ML INJECTION (J3010) IV SCH (06:00)
[2019-07-17] MEDS: HumaLOG INSULIN (NovoLOG) PER UNIT SC SCH ×3 (06:00→18:00)
[2019-07-17 06:48] LABS: HEMATOCRIT 39.9 % (42.0-52.0); HEMOGLOBIN 13.1 g/dl (13.5-17.5); MEAN CORPUSCULAR HEMOGLOBIN 27.6 pg (27.0-33.0); MEAN CORPUSCULAR HGB CONC 32.8 g/dl (32.0-36.5); PLATELET COUNT, AUTOMATED 231 10^3/uL (150-450); RED BLOOD COUNT 4.75 10^6/uL (4.30-6.10); WHITE BLOOD COUNT 9.7 10^3/uL (4.0-10.0)
[2019-07-17] MEDS ORDERED: LIDOCAINE 2% INJ 100 MG/5 ML SDV (FOR ANES.) As Ordered ONE (07:00)
[2019-07-17] MEDS ORDERED: ROCURONIUM BROMIDE 50 MG/5 ML VIAL As Ordered ONE ×2 (07:00→08:49)
[2019-07-17] MEDS ORDERED: dexameTHASONE 4 MG/ML 1ML VIAL (J1100) As Ordered ONE (07:01)
[2019-07-17] MEDS ORDERED: ONDANSETRON 4MG/2ML VIAL (J2405) As Ordered ONE (07:01)
[2019-07-17] MEDS ORDERED: propofoL 200 MG/20 ML VIAL As Ordered ONE (07:01)
[2019-07-17] MEDS ORDERED: fentaNYL 250 MCG/5 ML INJECTION (J3010) As Ordered ONE (07:04)
[2019-07-17] MEDS ORDERED: BUPIVACAINE HCL 0.25% 30 ML VIAL As Ordered ONE (07:08)
[2019-07-17] MEDS ORDERED: SUCCINYLCHOLINE 100 MG/5 ML SYRINGE (J0330) As Ordered ONE (07:12)
[2019-07-17 07:14] LABS: ALBUMIN 3.1 GM/DL (3.2-5.2); ALT/SGPT 17 U/L (12-78); BILIRUBIN,TOTAL 0.6 MG/DL (0.2-1.0); BLOOD UREA NITROGEN 14 MG/DL (7-18); CALCIUM LEVEL 8.9 MG/DL (8.8-10.2); CARBON DIOXIDE LEVEL 21 MEQ/L (21-32); CHLORIDE LEVEL 106 MEQ/L (98-107); CREATININE FOR GFR 0.76 MG/DL (0.70-1.30); GLOMERULAR FILTRATION RATE > 60.0 (>35); GLUCOSE, FASTING 83 MG/DL (70-100); POTASSIUM SERUM 3.9 MEQ/L (3.5-5.1); SODIUM LEVEL 135 MEQ/L (136-145)
[2019-07-17] MEDS: MIDAZOLAM INJ 2 MG/2 ML VIAL (J2250) IV SCH ×2 (07:52→07:54)
[2019-07-17] MEDS ORDERED: ONDANSETRON 4MG/2ML VIAL (J2405) IV PRN ×2 (08:00→12:00)
[2019-07-17] MEDS ORDERED: METOCLOPRAMIDE INJ 10MG/2ML VIAL (J2765) IV PRN (08:00)
[2019-07-17] MEDS ORDERED: diphenhydrAMINE INJ 50MG/ML VIAL (J1200) IV PRN (08:00)
[2019-07-17] MEDS ORDERED: EPIDURAL/PCA KEYS XX PRN (08:00)
[2019-07-17] MEDS ORDERED: WALLBOXKEY XX PRN (08:00)
[2019-07-17] MEDS ORDERED: NALOXONE INJ 0.4 MG/1 ML VIAL (J2310) IV PRN (08:00)
[2019-07-17] MEDS ORDERED: metroNIDAZOLE/NACL 500MG(5MG/ML)100 ML BAG (S0030) As Ordered ONE (08:07)
[2019-07-17] MEDS ORDERED: ACETAMINOPHEN 1000MG 100ML IV BTL (OFIRMEV) (J0131 PER 10MG) As Ordered ONE (08:42)
[2019-07-17] MEDS ORDERED: SUGAMMADEX SODIUM 500 MG/5 ML VIAL (BRIDION) As Ordered ONE (09:47)
[2019-07-17] MEDS ORDERED: PHENYLephrine HCL 500 MCG/5 ML (100MCG/ML) SYRINGE (J2370) As Ordered ONE (09:51)
[2019-07-17] MEDS ORDERED: BUPIVACAINE HCL 0.25% 10 ML VIAL As Ordered ONE (10:42)
[2019-07-17] MEDS ORDERED: BUPIVACAINE LIPOSOME/PF 1.3% 20ML VIAL (13.3MG/ML)(EXPAREL)(C9290 PER1MG) As Ordered ONE (10:42)
[2019-07-17] MEDS ORDERED: FENTANYL 2MCG/ML BUPIVACAINE 0.0625% NACL 250ML IV BAG As Ordered ONE (10:52)
[2019-07-17] MEDS ORDERED: fentaNYL 100 MCG/2 ML INJECTION (J3010) IV PRN (12:00)
[2019-07-17] MEDS ORDERED: LR 1,000 ML IV SCH (12:00)
[2019-07-17] MEDS ORDERED: MORPHINE 2 MG/ML 1ML VIAL (J2270) IV PRN (12:00)
[2019-07-17] MEDS: FENTANYL/BUPIVACAINE/NACL BAG 250 ML EPIDURAL SCH (12:00)
[2019-07-17] MEDS ORDERED: KETOROLAC 30 MG/ML VIAL (J1885) IV PRN (12:15)
--- NOTE | 2019-07-17 12:34 | IPNPDOC ---
Subjective Date Seen The patient was seen on 07/17/19. Subjective Chief Complaint/HPI seen and examined at bedside, no complaints, anxious about surgery today. General: Reports: Normal Appetite; Denies: Chills, Night Sweats, Fatigue, Malaise Constitutional: Denies: Chills, Fever, Night Sweats Eyes: Denies: Pain, Vision change ENT: Denies: Head Aches, Ear Pain, Dysphagia Skin: Denies: Rash, Lesions, Breakdown Pulmonary: Denies: Dyspnea, Cough Cardiovascular: Denies: Chest Pain, Palpitations, Orthopnea, Paroxysmal Noc. Dyspnea, Lt Headedness Gastrointestinal: Denies: Nausea, Vomiting, Abdominal Pain, Diarrhea, Constipation Genitourinary: Denies: Dysuria, Frequency, Incontinence, Retention Hematologic: Denies: Bruising, Bleeding Excessively Musculoskeletal: Denies: Neck Pain, Back Pain, Joint Pain, Muscle Pain, Spasms Neurological: Denies: Weakness, Numbness, Change in speech, Confusion Psych: Reports: Mood Normal; Denies: Depression, Memory Issues Objective Physical Examination General Exam: Positive: Alert, No Acute Distress Eye Exam: Positive: PERRLA, Conjunctiva & lids normal, EOMI; Negative: Sclera icteric ENT Exam: Positive: Atraumatic, Mucous membr. moist/pink, Pharynx Normal, Other ENT (NGT) Neck Exam: Positive: Supple Chest Exam: Positive: Clear to auscultation Heart Exam: Positive: Rate Normal, Normal S1, Normal S2 Telemetry: Positive: No significant arrhythmia Abdomen Exam: Positive: Normal bowel sounds Male Exam: Positive: Normal Genital Exam Extremity Exam: Positive: Normal pulses Skin Exam: Positive: Nl turgor and temperature Neuro Exam: Positive: Sensation Intact, Cranial Nerves 3-12 NL Psych Exam: Positive: Mental status NL, Mood NL, Oriented x 3 Assessment /Plan Assessment 1. partial gastric outlet obstruction - seen by surgery Dr. Copeland. - plan for partial gastrectomy today. 2. hypertension - cardizem IV, monitor. 3. hyperlipidemia - hold home meds. - can restart once taking oral meds. 4. DM2 -- FSBS/SSI coverage. Plan/VTE VTE Prophylaxis Ordered?: Yes VS, I&O, 24H, Fishbone Vital Signs/I&O Vital Signs Date Time Temp Pulse Resp B/P (MAP) Pulse Ox O2 Delivery O2 Flow Rate FiO2 07/17/19 12:06 97.7 82 16 134/66 (88) 94 Nasal Cannula 3 I&O- Last 24 Hours up to 6 AM 07/17/19 06:00 Intake Total 2480 ml Output Total 1350 ml Balance 1130 ml Laboratory Data 24H LABS Laboratory Tests 2 07/16/19 17:57: Bedside Glucose (Misc Panel) 83 07/16/19 23:35: Bedside Glucose (Misc Panel) 89 07/17/19 06:36: Nucleated Red Blood Cells % (auto) 0.0, Anion Gap 8, Glomerular Filtration Rate > 60.0, Calcium Level 8.9, Total Bilirubin 0.6, Aspartate Amino Transf (AST/SGOT) 29, Alanine Aminotransferase (ALT/SGPT) 17, Alkaline Phosphatase 65, Total Protein 7.0, Albumin 3.1L, Albumin/Globulin Ratio 0.79L 07/17/19 12:23: Bedside Glucose (Misc Panel) 92 CBC/BMP Laboratory Tests 07/17/19 06:36 JEFFERY BURK MD Jul 17, 2019 12:34
--- NOTE | 2019-07-17 13:11 | CR ---
DATE OF CONSULTATION: 07/15/2019 REASON FOR CONSULTATION: Gastric outlet obstruction. HISTORY OF PRESENT ILLNESS: The patient is a very pleasant 84-year-old man who was admitted by the hospitalist for continuing problems with a gastric outlet obstruction. He had undergone a EGD and colonoscopy by Dr. Cabrera on June 13 for a history of some anemia and problems with reflux and abdominal bloating. The EGD revealed some changes of esophagitis, but primarily there was what was described as an infiltrative and ulcerated mass in the gastric antrum and at the pylorus. This was described as appearing malignant. Biopsies were obtained. There was clearly significant obstruction at the level of the pylorus. The biopsies revealed some fragments of inflamed gastric mucosa with some atypical glands. These were not conclusive for malignancy. The colonoscopy revealed several small polyps, actually only one small polyp in the transverse colon with some diverticulosis in the sigmoid colon and no other concerning findings. The bowel prep was poor. A CT scan of the abdomen and pelvis was obtained on July 07 and this showed a distended stomach to the level of the pylorus. The small bowel appeared unremarkable and there was no suspicious adenopathy identified. My review of the images suggests some significant thickening and a mass-like effect in the region of the pylorus. He was placed on medical therapy for peptic ulcer disease, but did not show any improvement and was admitted to the hospital on July 13 with continuing symptoms of gastric outlet obstruction. He had been living primarily on a full liquid diet using Ensure to supplement and still quite felt quite full after any meal with increased heartburn and discomfort. A repeat EGD was performed by Dr. Cabrera on July 14 and this revealed a persistent abnormal gastric outlet. There was a large amount of food residue found in the gastric body and antrum. There was what he described as a large frond light villous infiltrative and ulcerated circumferential mass at the pylorus. Additional biopsies were taken. This could not be traversed with a regular scope, though the pediatric scope was advanced with some difficulty. Dr. Cabrera attempted to place a stent through the area but was unsuccessful. The repeat biopsies are still pending at this time. I have been consulted to consider surgical therapy for his gastric outlet obstruction. MEDICATIONS: At this time include: - Protonix twice daily - insulin sliding scale coverage - albuterol inhaler - Zofran as needed - meropenem 1 gram IV every 8 hours. ALLERGIES: Allergies are reported to: 1. KEFLEX. 2. CIPROFLOXACIN. 3. CODEINE. 4. DIATRIZOATE MEGLUMINE. 5. DIATRIZOATE SODIUM. 6. DOXYCYCLINE. HOME MEDICATIONS: Include an albuterol inhaler, ibuprofen p.r.n., diltiazem 60 mg p.o. twice daily, losartan 50 mg p.o. daily, metformin 500 mg ER tablets one daily at noon, montelukast 10 mg daily, multivitamin every evening, omeprazole 40 mg daily, Protonix 40 mg twice daily, MiraLAX and rosuvastatin 20 mg daily. MEDICAL HISTORY: Significant for hypertension and diabetes mellitus. He has a history of hyperlipidemia. He reports that he has been having gastric issues over at least a year, although worse recently. SURGICAL HISTORY: Significant for a transurethral resection of the prostate. He has had cataract surgery as well. He has had no abdominal surgery. FAMILY HISTORY: Unremarkable for any pertinent history. SOCIAL HISTORY: He is a former smoker but quit 30+ years ago. He denies any alcohol. REVIEW OF SYSTEMS: Reveals no history of chest pain or palpitations. He denies any cough, wheezing or sputum production. He has no history of hepatitis, pancreatitis, jaundice or peptic ulcer disease. He denies any dysuria or hematuria currently. He has had no history of DVT or pulmonary embolus. He is not having any significant bone or joint issues and denies any history of seizure or stroke. PHYSICAL EXAMINATION: Physical exam reveals a pleasant older man lying quietly in the hospital bed. He is alert and oriented. Skin is warm and dry. Sclerae are anicteric. Mucous membranes are moist. He has a nasogastric tube in place. Neck is supple without mass and he has no cervical bruits. Heart exam shows a regular rate and rhythm. The lungs are clear to auscultation bilaterally. The abdomen is perhaps mildly obese. There are no scars evident. There is no sign of hernia. He has bowel sounds present. The abdomen is soft throughout and without palpable mass. Laboratory studies from the include a white count 10, hemoglobin of 12, hematocrit of 39 and a platelet count of 248,000. His differential count shows 82% neutrophils, 7% lymphocytes and 10% monocytes. Chemistry profile from the shows a sodium of 136, potassium 3.8, chloride 105, CO2 of 25, BUN of 11, creatinine 0.8 and glucose of 85. His most recent liver function tests from the were normal with a total protein of 6.3 and albumin of 3.0, which are both slightly low. He had coags on the that were normal. Laboratory studies and endoscopy reports were reviewed. I have reviewed the pictures of his upper endoscopies from May and from July 14. It is difficult to identify the area of interest. There are photos of the stomach showing some residual retained food and the pylorus is prominent and otherwise without any obvious malignancy. Dr. Cabrera had described the look of the lesion within the pylorus as being possibly malignant. I reviewed the CT scan from July 07. There is certainly thickening in the region of the pylorus, though I do not see any definite enlarged nodes surrounding this. There is no evidence of metastatic disease. IMPRESSION: 1. Gastric outlet obstruction which may be secondary to benign ulcer disease or to gastric cancer. 2. Diabetes mellitus. 3. Hypertension. 4. Hyperlipidemia. PLAN: I discussed with the patient and his family that we will await the results of his pathology from his biopsies of the . These should be ready tomorrow. I will consider whether an MRI might be of benefit in trying to better outline the character of the pylorus and to look again for evidence of enlarged nodes. I discussed in general terms what might be required for relief of his obstruction and that this would entail a partial gastric resection. I have discussed with him that there is the possibility that this represents cancer and in that case it may or may not be possible to achieve a surgical cure of his cancer. I advised him that I will speak with Dr. Cabrera again and review his pathology in the morning and we can then rediscuss how to proceed. DEIRDRE
[2019-07-17] MEDS: ALBUTEROL 90 MCG/ACT 8GM HFA INHALER INH SCH ×2 (13:16→20:08)
[2019-07-17] MEDS: PANTOPRAZOLE 40MG INJ (PROTONIX) (C9113) IV SCH ×2 (13:29→23:56)
[2019-07-17] MEDS: LR 1,000 ML IV SCH ×2 (13:29→21:50)
[2019-07-18 02:00] VITALS: BP 119/57
[2019-07-18 06:00] VITALS: BP 107/69
[2019-07-18] MEDS: HumaLOG INSULIN (NovoLOG) PER UNIT SC SCH ×4 (06:52→18:00)
[2019-07-18 07:24] LABS: BASO # 0.1 10^3/uL (0.0-0.2); BASO % 0.4 % (0.0-1.0); EOS % 0.2 % (0.0-3.0); HEMATOCRIT 35.9 % (42.0-52.0); HEMOGLOBIN 11.5 g/dl (13.5-17.5); LYMPH # 0.6 10^3/uL (1.5-5.0); MEAN CORPUSCULAR HEMOGLOBIN 27.4 pg (27.0-33.0); MEAN CORPUSCULAR VOLUME 85.5 fl (80.0-96.0); MONO % 8.3 % (0.0-5.0); NEUTROPHILS # 10.6 10^3/uL (1.5-8.5); NEUTROPHILS % 85.7 % (36.0-66.0); PLATELET COUNT, AUTOMATED 157 10^3/uL (150-450); WHITE BLOOD COUNT 12.3 10^3/uL (4.0-10.0)
[2019-07-18 08:04] LABS: ALBUMIN 2.4 GM/DL (3.2-5.2); ALT/SGPT 14 U/L (12-78); BILIRUBIN,TOTAL 0.5 MG/DL (0.2-1.0); BLOOD UREA NITROGEN 19 MG/DL (7-18); CALCIUM LEVEL 8.3 MG/DL (8.8-10.2); CARBON DIOXIDE LEVEL 21 MEQ/L (21-32); CHLORIDE LEVEL 108 MEQ/L (98-107); CREATININE FOR GFR 0.71 MG/DL (0.70-1.30); GLOMERULAR FILTRATION RATE > 60.0 (>35); GLUCOSE, FASTING 117 MG/DL (70-100); POTASSIUM SERUM 4.2 MEQ/L (3.5-5.1); SODIUM LEVEL 138 MEQ/L (136-145); TOTAL PROTEIN 5.8 GM/DL (6.4-8.2)
[2019-07-18] MEDS: ALBUTEROL 90 MCG/ACT 8GM HFA INHALER INH SCH ×2 (08:33→20:29)
[2019-07-18 10:00] VITALS: BP 105/60
--- NOTE | 2019-07-18 10:06 | IPNPDOC ---
Subjective Date Seen The patient was seen on 07/18/19. Subjective Chief Complaint/HPI seen and examined at bedside, doing well post-surgery, no specific complaints. General: Reports: Normal Appetite; Denies: Chills, Night Sweats, Fatigue, Malaise Constitutional: Reports: Fatigue; Denies: Chills, Fever, Night Sweats Eyes: Denies: Pain, Vision change ENT: Denies: Head Aches, Ear Pain, Dysphagia Skin: Denies: Rash, Lesions, Breakdown Pulmonary: Denies: Dyspnea, Cough Cardiovascular: Denies: Chest Pain, Palpitations, Orthopnea, Paroxysmal Noc. Dyspnea, Lt Headedness Gastrointestinal: Denies: Nausea, Vomiting, Abdominal Pain, Diarrhea, Constipation Genitourinary: Denies: Dysuria, Frequency, Incontinence, Retention Hematologic: Denies: Bruising, Bleeding Excessively Musculoskeletal: Denies: Neck Pain, Back Pain, Joint Pain, Muscle Pain, Spasms Neurological: Denies: Weakness, Numbness, Change in speech, Confusion Psych: Reports: Mood Normal; Denies: Depression, Memory Issues Objective Physical Examination General Exam: Positive: Alert, No Acute Distress Eye Exam: Positive: PERRLA, Conjunctiva & lids normal, EOMI; Negative: Sclera icteric ENT Exam: Positive: Atraumatic, Mucous membr. moist/pink, Pharynx Normal, Other ENT (NGT) Neck Exam: Positive: Supple Chest Exam: Positive: Clear to auscultation Heart Exam: Positive: Rate Normal, Normal S1, Normal S2 Telemetry: Positive: No significant arrhythmia Abdomen Exam: Positive: Normal bowel sounds Male Exam: Positive: Normal Genital Exam Extremity Exam: Positive: Normal pulses Skin Exam: Positive: Nl turgor and temperature Neuro Exam: Positive: Sensation Intact, Cranial Nerves 3-12 NL Psych Exam: Positive: Mental status NL, Mood NL, Oriented x 3 Assessment /Plan Assessment 1. partial gastric outlet obstruction - surgery following. - s/p gastrojejunal bypass, POD#1, peritoneal nodule biopsy positive for malignancy, consistent with metastatic well differentiated adenocarcinoma. - PICC line, TPN to be started today. - will need oncology evaluation. 2. hypertension - cardizem IV, monitor. 3. hyperlipidemia - hold home meds. - can restart once taking oral meds. 4. DM2 -- FSBS/SSI coverage. Plan/VTE VTE Prophylaxis Ordered?: Yes VS, I&O, 24H, Fishbone Vital Signs/I&O Vital Signs Date Time Temp Pulse Resp B/P (MAP) Pulse Ox O2 Delivery O2 Flow Rate FiO2 07/18/19 09:00 2.0 07/18/19 06:00 97.7 98 19 107/69 (82) 93 Nasal Cannula I&O- Last 24 Hours up to 6 AM 07/18/19 06:00 Intake Total 2838 ml Output Total 1765 ml Balance 1073 ml Laboratory Data 24H LABS Laboratory Tests 2 07/17/19 12:23: Bedside Glucose (Misc Panel) 92 07/17/19 18:09: Bedside Glucose (Misc Panel) 101 07/18/19 00:05: Bedside Glucose (Misc Panel) 101 07/18/19 05:57: Bedside Glucose (Misc Panel) 114H 07/18/19 06:51: Immature Granulocyte % (Auto) 0.4, Neutrophils (%) (Auto) 85.7H, Lymphocytes (%) (Auto) 5.0L, Monocytes (%) (Auto) 8.3H, Eosinophils (%) (Auto) 0.2, Basophils (%) (Auto) 0.4, Neutrophils # (Auto) 10.6H, Lymphocytes # (Auto) 0.6L, Monocytes # (Auto) 1.0H, Eosinophils # (Auto) 0.0, Basophils # (Auto) 0.1, Nucleated Red Blood Cells % (auto) 0.0, Anion Gap 9, Glomerular Filtration Rate > 60.0, Calcium Level 8.3L, Total Bilirubin 0.5, Aspartate Amino Transf (AST/SGOT) 19, Alanine Aminotransferase (ALT/SGPT) 14, Alkaline Phosphatase 52, Total Protein 5.8L, Albumin 2.4#L, Albumin/Globulin Ratio 0.71L CBC/BMP Laboratory Tests 07/18/19 06:51 JEFFERY BURK MD Jul 18, 2019 10:06
[2019-07-18] MEDS: FENTANYL/BUPIVACAINE/NACL BAG 250 ML EPIDURAL SCH (10:38)
[2019-07-18 12:10] VITALS: BP 126/73
[2019-07-18] MEDS ORDERED: SODIUM CHLORIDE 0.9% INJ 10 ML SYR IV PRN (12:15)
[2019-07-18] MEDS: PANTOPRAZOLE 40MG INJ (PROTONIX) (C9113) IV SCH (12:39)
[2019-07-18 14:00] VITALS: BP 124/71
[2019-07-18] MEDS: LR 1,000 ML IV SCH (14:43)
--- NOTE | 2019-07-18 17:08 | REP ---
PICC line insertion under ultrasound guidance. The procedure was performed by PRICE Foreman, under the direct supervision of Dr. Lyman. The risks and benefits of the procedure were explained to the patient and informed consent was obtained both verbally and written. Directly prior to the start of the procedure, a formal timeout was completed in the procedure room. The right basilic vein was localized using ultrasound guidance. The skin was prepped and draped in the sterile fashion. 1 ml 1% lidocaine 10 mg/ml was used as a local anesthetic. Using ultrasound guidance the right basilic vein was cannulated and a 0.018 guidewire was inserted and advanced to the SVC using fluoroscopic guidance. The needle was removed and a 5.5 Cameroonian dilator and peel-away sheath was inserted over the guidewire. A 5.5 Cameroonian dual lumen catheter was cut to the length of 35 cm. The dilator was removed and the catheter was inserted over the guide wire with the tip ending in the SVC. The peel-away sheath was removed and the catheter was flushed with heparinized saline as per hospital protocol. The catheter was affixed to the skin and a sterile dressing was applied. The patient tolerated the procedure well and there were no immediate complications. 0.1 minutes of fluoroscopy time was utilized for this procedure. Some fluoroscopic images are performed with last image hold technology. These images require no additional radiation. Reviewed by PRICE Carter 07/18/2019 01:21 P Electronically Signed by Jorje Lyman MD 07/18/2019 04:59 P
[2019-07-18] MEDS ORDERED: FAT EMULSION IV 20% 500 ML IV SCH (18:00)
[2019-07-18] MEDS ORDERED: MULTIVITAMIN -ADULT INJECTION 10 ML, CR/CU/SE/MN/ZN INJ 1 ML in AMINO AC/ELECTROLYTE/DE... IV SCH (18:00)
[2019-07-18] MEDS: SODIUM CHLORIDE 0.9% INJ 10 ML SYR IV SCH (18:01)
--- NOTE | 2019-07-18 18:30 | IPN ---
DATE: 07/18/2019 HISTORY: The patient is now postoperative day #1 from exploratory laparotomy, at which his distal stomach/pyloric mass was found to be malignant in appearance with several scattered malignant nodules in the peritoneum. The mass was not resected, as it was adherent and seemed to be invading the pancreas. A Zachery-en-Y gastrojejunal bypass was performed. He has an epidural in place for pain control and reports he is very comfortable. I had also injected some Exparel as a TAP block. Vital signs show that he has been afebrile since surgery with the exception of a maximal temperature of 100.5 and 8 o'clock last night. His pulse has been running in the mid to high 80s and low 90s. His blood pressure is good, and his pulse oximetry on 2 liters of nasal cannula oxygen is in the mid 90s. Intake and output shows that he had 3 liters in yesterday with 2000 out. His urine output was 1675. He had 150 from his nasogastric (NG) tube yesterday, and there is 50 out this morning, and his Pepe drain, which is in the area of the anastomosis, had 45 yesterday and 30 this morning. PHYSICAL EXAMINATION: The patient is alert and seems very comfortable. Heart exam shows a regular rate and rhythm. The lungs are clear. His abdomen is flat, and he has bowel sounds present. His drain has a minimal amount of pink fluid in the tubing and the bulb. IMPRESSION: The patient is doing very well following his surgery. I have spoken with him about the findings at surgery, and he knows that I was unable to resect the tumor and that there is evidence of metastatic disease with peritoneal implants. PLAN: I counseled him that my plan is for him to have a peripherally inserted central catheter (PICC) line placed today so that we can start total parenteral nutrition (TPN). It may be that he will not need this for a long, but I would like to have everything in place to continue nutritional support if he is not able to start an oral diet soon. His epidural appears to be functioning very well. I have decided to leave his Helm catheter in place until we are able to back off on the epidural somewhat or remove this. I would hope within the next day or so to perform a swallowing study to confirm that his anastomosis is good and that his stomach will drain through his gastrojejunostomy successfully. Once that is accomplished, we can remove his NG tube and start him on some clear liquids. I counseled the patient that I would be going out of town and would be transferring his care for now to Dr. Box. I suggested that we have medical oncology see him early this next week when he will be probably a little bit more able to focus on the discussion, and the final pathology report may be back. DEIRDRE
--- NOTE | 2019-07-18 19:42 | RO ---
DATE OF PROCEDURE: 07/17/2019 PREOPERATIVE DIAGNOSIS: Gastric outlet obstruction secondary to pyloric channel mass. 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 PROCEDURE PERFORMED: Exploratory laparotomy with biopsy of peritoneal nodules, Zachery-en-Y gastrojejunostomy. SURGEON: Dr. Erwin Fang SITE TECHNICIAN: Chente Tse MS III ANESTHESIA: General. INDICATIONS FOR PROCEDURE: The patient is an 84-year-old man who has had gastric outlet obstruction symptoms for several months. He has been endoscoped with findings of abnormal tissue in the pyloric channel but biopsies were negative for cancer. Maximal medical therapy failed to improve his symptoms, and he was admitted with a gastric outlet obstruction and a markedly distended stomach. He has been decompressed with a nasogastric (NG) tube and a repeat endoscopy again showed , abnormal tissue in the pyloric channel. CT scan had been done previously and showed thickening in this area, and an MRI was done which again showed marked thickening of the wall of the pyloric channel and first portion of the duodenum. There were no signs of metastatic disease and no significant adenopathy was identified. The patient is now for exploration for determination as to whether this is a benign or malignant process and possible partial gastrectomy with gastrojejunostomy. DESCRIPTION OF PROCEDURE: The patient was brought to the holding area and an epidural catheter was placed by anesthesia for postoperative pain management. A nasogastric tube was already in place. He was brought to the operating room and placed on the table in a supine position. He was placed under general endotracheal anesthesia. A Helm catheter was inserted. Thromboembolism deterrents (TEDs) and sequentials were utilized. The patient's abdomen was prepped and draped in a sterile fashion. A midline epigastric incision was made beginning several centimeters below the xyphoid and extending down to just above the umbilicus. On opening the peritoneum, there was no free fluid identified. The edge of the liver was noted, and the right and left sides of the liver could easily be seen. There were a few tiny cysts on the surface of the liver, but these appeared benign. It was possible to palpate the mass in the distal stomach and pyloric region. This appeared to have some adherent omentum, and the appearance was consistent with a malignant process. The surface was quite puckered on the anterosuperior surface. This appeared to be fixed to the region of the head of the pancreas. Palpation of the abdominal wall was then performed and initially a very small nodule was noted just deep to the umbilicus on the peritoneal surface. This was perhaps 4- 5 mm in size. This had the appearance of a small metastatic deposit. A second nodule perhaps 8-10 mm in size was identified on the anterior abdominal wall slightly further down. As a more thorough examination of the peritoneal surfaces took place, there was an irregular flat plaque-like area about a centimeter in size on the undersurface of the left hemidiaphragm, and there were several small spots, perhaps 3-5 mm in diameter, on the right hemidiaphragm and lateral abdominal wall above the right lobe of the liver. The two small nodules from the anterior abdominal wall were excised and sent for frozen section to confirm that this represented metastatic disease. While waiting for the results, I opened the omentum along the lower aspect of the greater curve of the stomach to get into the lesser sac. This was accomplished with the Harmonic scalpel. There was a very firm union between the posterior wall of the distal stomach and the underlying pancreas. This was not simple inflammation that could be broken apart but seemed to be direct invasion. There was at least one small plaque of tumor less than a centimeter in size noted within the lesser sac. Interestingly, the greater omentum did not appear to have any obvious cancer nodules. The pathologist, that would be Dr Hampton, called back to let me know that the nodules were consistent with adenocarcinoma, which could be from either gastric or pancreatic origin. The patient was clearly not resectable for cure. The invasion of the pancreas, I believe, precluded any resection for palliation given the high risk of complications from trying to free the stomach from the pancreas. I then focused on palliation and elected to proceed with a gastrojejunal bypass. I elected to do this as a Zachery-en-Y approach. Therefore, the proximal jejunum was identified. The jejunum was transected with a linear cutter 55 approximately 20-30 cm below the ligament of Treitz. The mesentery was divided with the Harmonic scalpel. An opening was created through the transverse colon mesentery and the Zachery limb was brought up through this opening to lie posterior to the stomach. A stapled anastomosis was performed to the posterior inferior wall of the stomach using a linear cutter 75 with a green load and a TX60G with a green load to complete the anastomosis. Prior to closing the opening with a TX60G, I did over sew the posterior wall of the staple line with a #3-0 Vicryl from the inside, and I placed some additional reinforcing sutures of #3-0 silk anteriorly. After completing the closure, several additional reinforcing sutures of #3-0 silk were placed. The anastomosis appeared excellent with no evidence of any bleeding. The tissues of the transverse colon mesentery were tacked to the bowel where it passed through this opening to try to prevent herniation. The small bowel anastomosis was then performed with a linear cutter 55 stapler and a TX60G stapler to complete the anastomosis. Again, this was reinforced with several sutures of #3-0 Vicryl. The mesenteric defect of the small bowel was closed with sutures of #3-0 silk. Again, the anastomosis appeared excellent. The abdomen was then irrigated with warm saline, and this was removed as thoroughly as possible. Final inspection showed two excellent anastomoses with no bleeding. A 19-Mongolian Pepe drain was inserted in the right side of the epigastrium and directed through the opening in the greater omentum to lie posterior to the stomach adjacent to the gastrojejunal anastomosis. The peritoneum in the lower portion of the wound was approximated with a running suture of #0 chromic. The fascia was closed with interrupted simple sutures of #1 Vicryl. The skin edges were approximated with skin gabriela. The drain was sutured to the skin with a #2-0 silk and connected to a Morro-Camarena bulb. The drain site was dressed with a chlorhexidine gluconate OpSite, and the midline incision was dressed with a bulky bandage of prep gauze. I elected to maintain the Helm catheter given the patient's age and the presence of the epidural for pain management. I did also inject 40 mL of a mix of 20 mL of Exparel and 20 mL of 0.25% Marcaine. This was infiltrated in a TAP block type approach infiltrating this from the inside the abdomen just prior to closure of the abdominal incision. The patient tolerated the procedure well without apparent complication. He was awakened in the operating room, extubated and moved to the recovery room in stable condition. DEIRDRE
[2019-07-18 22:00] VITALS: BP 126/72
[2019-07-19] MEDS: PANTOPRAZOLE 40MG INJ (PROTONIX) (C9113) IV SCH ×3 (00:17→23:44)
[2019-07-19] MEDS: HumaLOG INSULIN (NovoLOG) PER UNIT SC SCH ×5 (00:17→23:44)
[2019-07-19 02:00] VITALS: BP 107/61
[2019-07-19 06:00] VITALS: BP 127/74
[2019-07-19] MEDS: ALBUTEROL 90 MCG/ACT 8GM HFA INHALER INH SCH ×2 (06:16→20:08)
[2019-07-19] MEDS: SODIUM CHLORIDE 0.9% INJ 10 ML SYR IV SCH ×2 (06:49→18:03)
[2019-07-19 06:52] LABS: HEMATOCRIT 31.6 % (42.0-52.0); HEMOGLOBIN 10.3 g/dl (13.5-17.5); MEAN CORPUSCULAR HGB CONC 32.6 g/dl (32.0-36.5); MEAN CORPUSCULAR VOLUME 85.9 fl (80.0-96.0); PLATELET COUNT, AUTOMATED 170 10^3/uL (150-450); RED BLOOD COUNT 3.68 10^6/uL (4.30-6.10); WHITE BLOOD COUNT 10.1 10^3/uL (4.0-10.0)
[2019-07-19 07:15] LABS: BLOOD UREA NITROGEN 22 MG/DL (7-18); CALCIUM LEVEL 8.4 MG/DL (8.8-10.2); CARBON DIOXIDE LEVEL 32 MEQ/L (21-32); CHLORIDE LEVEL 104 MEQ/L (98-107); CREATININE FOR GFR 0.66 MG/DL (0.70-1.30); GLOMERULAR FILTRATION RATE > 60.0 (>35); GLUCOSE, FASTING 180 MG/DL (70-100); POTASSIUM SERUM 3.8 MEQ/L (3.5-5.1); SODIUM LEVEL 137 MEQ/L (136-145)
[2019-07-19 10:00] VITALS: BP 116/63
[2019-07-19] MEDS ORDERED: NORCO, ANEXSIA 5/325MG TABLET (HYDROcodone/ACETAMINOPHEN) PO PRN (10:15)
[2019-07-19] MEDS ORDERED: MORPHINE 2 MG/ML 1ML VIAL (J2270) IV PRN (10:15)
--- NOTE | 2019-07-19 10:20 | IPNPDOC ---
Text Note Date of Service The patient was seen on 07/19/19. NOTE No acute events overnight. He has no complaints. NG output is minimal, no pain, no problems with the drains or the lopez. Epidural is still in place. No flatus. VSSAF NAD abd - soft, TTP appropriate, incision c/d/i, zeenat drain with serosanguinous output, NG with bilious output labs - below A) 84y/o male s/p RnY for gastric outlet obstruction and signs of metastatic ad enocarcinoma P) d/c lopez d/c epidural npo ngt amb in halls IS will get UGI on Sunday and if no leak then we will start liquid diet. Lloyd Box DO VS,Nicolas, I+O VS, Crise, I+O Laboratory Tests 07/19/19 06:32 Vital Signs Date Time Temp Pulse Resp B/P (MAP) Pulse Ox O2 Delivery O2 Flow Rate FiO2 07/19/19 06:00 97.7 66 18 127/74 (91) 92 Nasal Cannula 2.0 I&O- Last 24 Hours up to 6 AM 07/19/19 06:00 Intake Total 2460 ml Output Total 1219 ml Balance 1241 ml JOANIE BOX DO Jul 19, 2019 10:20
--- NOTE | 2019-07-19 12:13 | IPNPDOC ---
Subjective Date Seen The patient was seen on 07/19/19. Subjective Chief Complaint/HPI seen and examined at bedside, doing well, no issues overnight. General: Reports: Normal Appetite; Denies: Chills, Night Sweats, Fatigue, Malaise Constitutional: Denies: Chills, Fever, Night Sweats Eyes: Denies: Pain, Vision change ENT: Denies: Head Aches, Ear Pain, Dysphagia Skin: Denies: Rash, Lesions, Breakdown Pulmonary: Denies: Dyspnea, Cough Cardiovascular: Denies: Chest Pain, Palpitations, Orthopnea, Paroxysmal Noc. Dyspnea, Lt Headedness Gastrointestinal: Denies: Nausea, Vomiting, Abdominal Pain, Diarrhea, Constipation Genitourinary: Denies: Dysuria, Frequency, Incontinence, Retention Hematologic: Denies: Bruising, Bleeding Excessively Musculoskeletal: Denies: Neck Pain, Back Pain, Joint Pain, Muscle Pain, Spasms Neurological: Denies: Weakness, Numbness, Change in speech, Confusion Psych: Reports: Mood Normal; Denies: Depression, Memory Issues Objective Physical Examination General Exam: Positive: Alert, No Acute Distress Eye Exam: Positive: PERRLA, Conjunctiva & lids normal, EOMI; Negative: Sclera icteric ENT Exam: Positive: Atraumatic, Mucous membr. moist/pink, Pharynx Normal, Other ENT (NGT) Neck Exam: Positive: Supple Chest Exam: Positive: Clear to auscultation Heart Exam: Positive: Rate Normal, Normal S1, Normal S2 Telemetry: Positive: No significant arrhythmia Abdomen Exam: Positive: Normal bowel sounds, Other (drain in place, serosanginous fluid) Male Exam: Positive: Normal Genital Exam Extremity Exam: Positive: Normal pulses Skin Exam: Positive: Nl turgor and temperature, Other skin issue (incision site with dressing. ) Neuro Exam: Positive: Sensation Intact, Cranial Nerves 3-12 NL Psych Exam: Positive: Mental status NL, Mood NL, Oriented x 3 Assessment /Plan Assessment 1. partial gastric outlet obstruction - s/p gastrojejunal bypass, POD#1, peritoneal nodule biopsy positive for malignancy, consistent with metastatic well differentiated adenocarcinoma. - on TPN. - surgery following. - will need oncology evaluation. - UGI planned for Sunday. 2. hypertension - cardizem IV, monitor. 3. hyperlipidemia - hold home meds. - can restart once taking oral meds. 4. DM2 -- FSBS/SSI coverage. Plan/VTE VTE Prophylaxis Ordered?: Yes VS, I&O, 24H, Fishbone Vital Signs/I&O Vital Signs Date Time Temp Pulse Resp B/P (MAP) Pulse Ox O2 Delivery O2 Flow Rate FiO2 07/19/19 10:00 97.9 65 16 116/63 (80) 95 Nasal Cannula 2.0 I&O- Last 24 Hours up to 6 AM 07/19/19 06:00 Intake Total 2460 ml Output Total 1219 ml Balance 1241 ml Laboratory Data 24H LABS Laboratory Tests 2 07/18/19 12:18: Bedside Glucose (Misc Panel) 107 07/18/19 17:44: Bedside Glucose (Misc Panel) 96 07/18/19 23:51: Bedside Glucose (Misc Panel) 149H 07/19/19 06:32: Nucleated Red Blood Cells % (auto) 0.0, Anion Gap 1L, Glomerular Filtration Rate > 60.0, Calcium Level 8.4L 07/19/19 06:41: Bedside Glucose (Misc Panel) 185H 07/19/19 11:31: Bedside Glucose (Misc Panel) 170H CBC/BMP Laboratory Tests 07/19/19 06:32 JEFFERY BURK MD Jul 19, 2019 12:13
[2019-07-19 14:00] VITALS: BP 110/75
[2019-07-19] MEDS: LR 1,000 ML IV SCH (14:19)
[2019-07-19] MEDS ORDERED: FAT EMULSION IV 20% 500 ML IV SCH (18:00)
[2019-07-19] MEDS ORDERED: AMINO AC/ELECTROLYTE/DEX/CALC 2,000 ML IV SCH (18:00)
--- NOTE | 2019-07-19 21:29 | REPVR ---
PROCEDURE INFORMATION: Exam: XR Abdomen, 1 View Exam date and time: 07/19/2019 9:06 PM Age: 84 years old Clinical indication: Device placement; Gi device; Nasogastric tube; Prior surgery; Surgery date: Post-operative (0-2 days); Surgery type: Unknown; Patient HX: PT had recent surgery had ng tube placed; Additional info: Verify ng tube placement TECHNIQUE: Imaging protocol: XR of the abdomen. Views: Frontal supine view of the abdomen. 1 View. COMPARISON: CR Abdomen,Flat Plate KUB 07/13/2019 12:38 PM FINDINGS: Tubes, catheters and devices: NG tube extending into the stomach at the level of the gastric body. Gastrointestinal tract: Mild bowel gas without abnormal dilatation. Mild stool throughout the colon, right greater than left. Intraperitoneal space: Radiopaque sutures in the left abdomen. Bones/joints: Unremarkable. Soft tissues: Vertical skin gabriela to the right of midline with drain extending obliquely across the upper abdomen. Other findings: Interval surgery since the prior study. IMPRESSION: 1. NG tube extending to the gastric body. 2. Evidence of recent surgery with drain across the upper abdomen. 3. Mild bowel gas without abnormal dilatation and mild stool in the colon, right greater than left. Electronically signed by: Gallito Thompson On 07/19/2019 21:28:47 PM
[2019-07-19 22:00] VITALS: BP 121/77
[2019-07-20 02:00] VITALS: BP 122/71
[2019-07-20] MEDS: SODIUM CHLORIDE 0.9% INJ 10 ML SYR IV SCH ×2 (05:25→18:21)
[2019-07-20] MEDS: HumaLOG INSULIN (NovoLOG) PER UNIT SC SCH ×3 (05:25→18:20)
[2019-07-20 06:00] VITALS: BP 123/76
[2019-07-20 06:59] LABS: HEMATOCRIT 31.4 % (42.0-52.0); HEMOGLOBIN 10.3 g/dl (13.5-17.5); MEAN CORPUSCULAR HEMOGLOBIN 27.8 pg (27.0-33.0); MEAN CORPUSCULAR HGB CONC 32.8 g/dl (32.0-36.5); MEAN CORPUSCULAR VOLUME 84.9 fl (80.0-96.0); PLATELET COUNT, AUTOMATED 175 10^3/uL (150-450); WHITE BLOOD COUNT 9.3 10^3/uL (4.0-10.0)
[2019-07-20] MEDS: ALBUTEROL 90 MCG/ACT 8GM HFA INHALER INH SCH ×2 (07:17→20:08)
[2019-07-20 07:23] LABS: BLOOD UREA NITROGEN 19 MG/DL (7-18); CALCIUM LEVEL 7.4 MG/DL (8.8-10.2); CARBON DIOXIDE LEVEL 30 MEQ/L (21-32); CHLORIDE LEVEL 104 MEQ/L (98-107); CREATININE FOR GFR 0.52 MG/DL (0.70-1.30); GLOMERULAR FILTRATION RATE > 60.0 (>35); GLUCOSE, FASTING 150 MG/DL (70-100); POTASSIUM SERUM 3.5 MEQ/L (3.5-5.1); SODIUM LEVEL 139 MEQ/L (136-145)
--- NOTE | 2019-07-20 09:07 | IPNPDOC ---
Subjective Date Seen The patient was seen on 07/20/19. Subjective Chief Complaint/HPI seen and examined at bedside, some soarness across abdomen, otherwise doing well. General: Reports: Normal Appetite; Denies: Chills, Night Sweats, Fatigue, Malaise Constitutional: Denies: Chills, Fever, Night Sweats Eyes: Denies: Pain, Vision change ENT: Denies: Head Aches, Ear Pain, Dysphagia Skin: Denies: Rash, Lesions, Breakdown Pulmonary: Denies: Dyspnea, Cough Cardiovascular: Denies: Chest Pain, Palpitations, Orthopnea, Paroxysmal Noc. Dyspnea, Lt Headedness Gastrointestinal: Denies: Nausea, Vomiting, Abdominal Pain, Diarrhea, Constipation Genitourinary: Denies: Dysuria, Frequency, Incontinence, Retention Hematologic: Denies: Bruising, Bleeding Excessively Musculoskeletal: Denies: Neck Pain, Back Pain, Joint Pain, Muscle Pain, Spasms Neurological: Denies: Weakness, Numbness, Change in speech, Confusion Psych: Reports: Mood Normal; Denies: Depression, Memory Issues Objective Physical Examination General Exam: Positive: Alert, No Acute Distress Eye Exam: Positive: PERRLA, Conjunctiva & lids normal, EOMI; Negative: Sclera icteric ENT Exam: Positive: Atraumatic, Mucous membr. moist/pink, Pharynx Normal, Other ENT (NGT) Neck Exam: Positive: Supple Chest Exam: Positive: Clear to auscultation Heart Exam: Positive: Rate Normal, Normal S1, Normal S2 Telemetry: Positive: No significant arrhythmia Abdomen Exam: Positive: Normal bowel sounds, Other (drain in place, serosanginous fluid) Male Exam: Positive: Normal Genital Exam Extremity Exam: Positive: Normal pulses Skin Exam: Positive: Nl turgor and temperature, Other skin issue (incision site with dressing. ) Neuro Exam: Positive: Sensation Intact, Cranial Nerves 3-12 NL Psych Exam: Positive: Mental status NL, Mood NL, Oriented x 3 Assessment /Plan Assessment 1. partial gastric outlet obstruction - s/p gastrojejunal bypass, POD#1, peritoneal nodule biopsy positive for malignancy, consistent with metastatic well differentiated adenocarcinoma. - on TPN. - surgery following. - will need oncology evaluation. - UGI planned for Sunday. 2. hypertension - cardizem IV, monitor. 3. hyperlipidemia - hold home meds. - can restart once taking oral meds. 4. DM2 -- FSBS/SSI coverage. Plan/VTE VTE Prophylaxis Ordered?: Yes VS, I&O, 24H, Fishbone Vital Signs/I&O Vital Signs Date Time Temp Pulse Resp B/P (MAP) Pulse Ox O2 Delivery O2 Flow Rate FiO2 07/20/19 06:00 98.7 59 16 123/76 (92) 92 I&O- Last 24 Hours up to 6 AM 07/20/19 06:00 Intake Total 1320 ml Output Total 965 ml Balance 355 ml Laboratory Data 24H LABS Laboratory Tests 2 07/19/19 11:31: Bedside Glucose (Misc Panel) 170H 07/19/19 17:34: Bedside Glucose (Misc Panel) 132H 07/19/19 23:33: Bedside Glucose (Misc Panel) 199H 07/20/19 05:12: Bedside Glucose (Misc Panel) 158H 07/20/19 06:24: Nucleated Red Blood Cells % (auto) 0.0, Anion Gap 5L, Glomerular Filtration Rate > 60.0, Calcium Level 7.4L CBC/BMP Laboratory Tests 07/20/19 06:24 JEFFERY BURK MD Jul 20, 2019 09:07
[2019-07-20 10:00] VITALS: BP 110/71
--- NOTE | 2019-07-20 10:30 | IPNPDOC ---
Text Note Date of Service The patient was seen on 07/20/19. NOTE No acute events overnight. He has no complaints. NG output is minimal, pain is controlled, no problems with the drain. Positive flatus, no BM. VSSAF NAD abd - soft, TTP appropriate, incision c/d/i, zeenat drain with serosanguinous output, NG with bilious output labs - below A) 84y/o male s/p RnY for gastric outlet obstruction and signs of metastatic adenocarcinoma P) npo sips and chips ngt amb in halls IS will get UGI tomorrow and if no leak then we will start liquid diet. Lloyd Box DO VS,Fishbone, I+O VS, Fishbone, I+O Laboratory Tests 07/20/19 06:24 Vital Signs Date Time Temp Pulse Resp B/P (MAP) Pulse Ox O2 Delivery O2 Flow Rate FiO2 07/20/19 06:00 98.7 59 16 123/76 (92) 92 I&O- Last 24 Hours up to 6 AM 07/20/19 06:00 Intake Total 1320 ml Output Total 965 ml Balance 355 ml JOANIE BOX DO Jul 20, 2019 10:30
[2019-07-20] MEDS: PANTOPRAZOLE 40MG INJ (PROTONIX) (C9113) IV SCH (11:55)
[2019-07-20 14:00] VITALS: BP 122/80
[2019-07-20] MEDS: LR 1,000 ML IV SCH (14:15)
[2019-07-20] MEDS ORDERED: FAT EMULSION IV 20% 500 ML IV SCH (18:00)
[2019-07-20] MEDS ORDERED: AMINO AC/ELECTROLYTE/DEX/CALC 2,000 ML IV SCH (18:00)
[2019-07-20 22:00] VITALS: BP 129/78
[2019-07-21] MEDS: PANTOPRAZOLE 40MG INJ (PROTONIX) (C9113) IV SCH ×2 (00:36→12:26)
[2019-07-21] MEDS: HumaLOG INSULIN (NovoLOG) PER UNIT SC SCH ×4 (00:44→18:28)
[2019-07-21 06:00] VITALS: BP 143/73
[2019-07-21 06:15] LABS: HEMOGLOBIN 11.1 g/dl (13.5-17.5); MEAN CORPUSCULAR HEMOGLOBIN 27.8 pg (27.0-33.0); MEAN CORPUSCULAR HGB CONC 33.6 g/dl (32.0-36.5); MEAN CORPUSCULAR VOLUME 82.5 fl (80.0-96.0); PLATELET COUNT, AUTOMATED 191 10^3/uL (150-450); WHITE BLOOD COUNT 7.7 10^3/uL (4.0-10.0)
[2019-07-21] MEDS: SODIUM CHLORIDE 0.9% INJ 10 ML SYR IV SCH ×2 (06:39→18:29)
[2019-07-21 06:45] LABS: BLOOD UREA NITROGEN 14 MG/DL (7-18); CALCIUM LEVEL 8.1 MG/DL (8.8-10.2); CARBON DIOXIDE LEVEL 29 MEQ/L (21-32); CHLORIDE LEVEL 105 MEQ/L (98-107); CREATININE FOR GFR 0.53 MG/DL (0.70-1.30); GLOMERULAR FILTRATION RATE > 60.0 (>35); GLUCOSE, FASTING 139 MG/DL (70-100); POTASSIUM SERUM 3.3 MEQ/L (3.5-5.1); SODIUM LEVEL 138 MEQ/L (136-145)
[2019-07-21] MEDS: ALBUTEROL 90 MCG/ACT 8GM HFA INHALER INH SCH ×2 (08:22→20:06)
[2019-07-21] MEDS ORDERED: GASTROGRAFIN SOLUTION 30ML (Q9963) As Ordered ONE ×2 (09:24→10:18)
--- NOTE | 2019-07-21 11:00 | IPNPDOC ---
Subjective Date Seen The patient was seen on 07/21/19. Subjective Chief Complaint/HPI seen and examined, no specific complaints today. General: Reports: Normal Appetite; Denies: Chills, Night Sweats, Fatigue, Malaise Constitutional: Denies: Chills, Fever, Night Sweats Eyes: Denies: Pain, Vision change ENT: Denies: Head Aches, Ear Pain, Dysphagia Skin: Denies: Rash, Lesions, Breakdown Pulmonary: Denies: Dyspnea, Cough Cardiovascular: Denies: Chest Pain, Palpitations, Orthopnea, Paroxysmal Noc. Dyspnea, Lt Headedness Gastrointestinal: Denies: Nausea, Vomiting, Abdominal Pain, Diarrhea, Constipation Genitourinary: Denies: Dysuria, Frequency, Incontinence, Retention Hematologic: Denies: Bruising, Bleeding Excessively Musculoskeletal: Denies: Neck Pain, Back Pain, Joint Pain, Muscle Pain, Spasms Neurological: Denies: Weakness, Numbness, Change in speech, Confusion Psych: Reports: Mood Normal; Denies: Depression, Memory Issues Objective Physical Examination General Exam: Positive: Alert, No Acute Distress Eye Exam: Positive: PERRLA, Conjunctiva & lids normal, EOMI; Negative: Sclera icteric ENT Exam: Positive: Atraumatic, Mucous membr. moist/pink, Pharynx Normal, Other ENT (NGT) Neck Exam: Positive: Supple Chest Exam: Positive: Clear to auscultation Heart Exam: Positive: Rate Normal, Normal S1, Normal S2 Telemetry: Positive: No significant arrhythmia Abdomen Exam: Positive: Normal bowel sounds, Other (drain in place, seros anginous fluid) Male Exam: Positive: Normal Genital Exam Extremity Exam: Positive: Normal pulses Skin Exam: Positive: Nl turgor and temperature, Other skin issue (incision site with dressing. ) Neuro Exam: Positive: Sensation Intact, Cranial Nerves 3-12 NL Psych Exam: Positive: Mental status NL, Mood NL, Oriented x 3 Assessment /Plan Assessment 1. partial gastric outlet obstruction - s/p gastrojejunal bypass, POD#1, peritoneal nodule biopsy positive for malignancy, consistent with metastatic well differentiated adenocarcinoma. - on TPN. - surgery following. - will need oncology evaluation. - UGI series today, if no leak can start on liquid diet. 2. hypertension - cardizem IV, monitor. 3. hyperlipidemia - hold home meds. - can restart once taking oral meds. 4. DM2 -- FSBS/SSI coverage. Plan/VTE VTE Prophylaxis Ordered?: Yes VS, I&O, 24H, Fishbone Vital Signs/I&O Vital Signs Date Time Temp Pulse Resp B/P (MAP) Pulse Ox O2 Delivery O2 Flow Rate FiO2 07/21/19 06:00 98.0 71 16 143/73 (96) 94 Room Air 07/20/19 14:00 2.0 I&O- Last 24 Hours up to 6 AM 07/21/19 06:00 Intake Total 2289 ml Output Total 1440 ml Balance 849 ml Laboratory Data 24H LABS Laboratory Tests 2 07/20/19 12:10: Bedside Glucose (Misc Panel) 164H 07/20/19 17:46: Bedside Glucose (Misc Panel) 174H 07/21/19 00:40: Bedside Glucose (Misc Panel) 170H 07/21/19 05:40: Nucleated Red Blood Cells % (auto) 0.0, Anion Gap 4L, Glomerular Filtration Rate > 60.0, Calcium Level 8.1L 07/21/19 05:56: Bedside Glucose (Misc Panel) 137H CBC/BMP Laboratory Tests 07/21/19 05:40 JEFFERY BURK MD Jul 21, 2019 11:00
[2019-07-21] MEDS: KCL 10MEQ/100ML SWI (KRUN) 10 MEQ in IV 1 EA IV SCH ×2 (12:27→15:34)
[2019-07-21 14:00] VITALS: BP 139/87
[2019-07-21] MEDS ORDERED: SALIVA SUBSTITUTE(MOUTHKOTE) BTL MT PRN (16:30)
--- NOTE | 2019-07-21 16:41 | REP ---
Examination Requested: Upper G.I. Series With KUB Reason For Exam: Status post gastric bypass rule out anastomotic leak Upper GI Air Contrast The procedure was performed by PRICE Foreman, under the direct supervision of Dr. Lyman. The images were reviewed with Dr. Lyman. The engineer rf deployment film shows no organomegaly or pathological masses. The intestinal gas pattern appears normal. There is a nasogastric tube. There are multiple surgical gabriela. 120 ml of a solution that was 50% water and 50% gastrografin was injected into the nasogastric tube in order to perform a water soluble limited upper GI examination to evaluate for anastomotic leak. The anastomosis was visualized. Both the afferent and efferent loops of small bowel was visualized. No anastomotic leak was visualized. Impression: 1. No anastomotic leak was visualized. 0.7 minutes of fluoroscopy time was utilized for this procedure. Some fluoroscopic images are performed with last image hold technology. These images require no additional radiation. Reviewed by PRICE Carter 07/21/2019 03:51 P Electronically Signed by Jorje Lyman MD 07/21/2019 04:31 P
[2019-07-21 18:00] VITALS: BP 139/84
[2019-07-21] MEDS ORDERED: FAT EMULSION IV 20% 500 ML IV SCH (18:00)
[2019-07-21] MEDS ORDERED: HumaLOG INSULIN (NovoLOG) PER UNIT SC SCH (18:00)
[2019-07-21] MEDS ORDERED: AMINO AC/ELECTROLYTE/DEX/CALC 2,000 ML IV SCH (18:00)
--- NOTE | 2019-07-21 19:17 | IPNPDOC ---
Text Note Date of Service The patient was seen on 07/21/19. NOTE No acute events overnight. He has no complaints. NG output is minimal, pain is controlled, no problems with the drain. Positive flatus, no BM. VSSAF NAD abd - soft, TTP appropriate, incision c/d/i, zeenat drain with serosanguinous output, NG with bilious output labs - below A) 84y/o male s/p RnY for gastric outlet obstruction and signs of metastatic adenocarcinoma P) npo sips and chips ngt amb in halls IS will get UGI today, and if no leak then we will clamp NG and start diet. Lloyd Box DO VS,Fishbone, I+O VS, Fishbone, I+O Laboratory Tests 07/21/19 05:40 Vital Signs Date Time Temp Pulse Resp B/P (MAP) Pulse Ox O2 Delivery O2 Flow Rate FiO2 07/21/19 18:00 99.0 82 20 139/84 (102) 97 Room Air 07/20/19 14:00 2.0 I&O- Last 24 Hours up to 6 AM 07/21/19 06:00 Intake Total 2289 ml Output Total 1440 ml Balance 849 ml JOANIE BOX DO Jul 21, 2019 19:17
[2019-07-21 22:00] VITALS: BP 161/82
[2019-07-22] MEDS: PANTOPRAZOLE 40MG INJ (PROTONIX) (C9113) IV SCH (00:19)
[2019-07-22] MEDS: HumaLOG INSULIN (NovoLOG) PER UNIT SC SCH ×4 (00:19→18:43)
[2019-07-22 02:00] VITALS: BP 136/81
[2019-07-22 06:00] VITALS: BP 133/82
[2019-07-22 06:23] LABS: HEMATOCRIT 31.6 % (42.0-52.0); HEMOGLOBIN 10.8 g/dl (13.5-17.5); MEAN CORPUSCULAR HEMOGLOBIN 28.7 pg (27.0-33.0); MEAN CORPUSCULAR HGB CONC 34.2 g/dl (32.0-36.5); PLATELET COUNT, AUTOMATED 186 10^3/uL (150-450); RED BLOOD COUNT 3.76 10^6/uL (4.30-6.10); WHITE BLOOD COUNT 8.3 10^3/uL (4.0-10.0)
[2019-07-22] MEDS: SODIUM CHLORIDE 0.9% INJ 10 ML SYR IV SCH ×2 (06:35→18:00)
[2019-07-22 06:40] LABS: BLOOD UREA NITROGEN 15 MG/DL (7-18); CALCIUM LEVEL 8.1 MG/DL (8.8-10.2); CARBON DIOXIDE LEVEL 27 MEQ/L (21-32); CHLORIDE LEVEL 107 MEQ/L (98-107); GLOMERULAR FILTRATION RATE > 60.0 (>35); GLUCOSE, FASTING 169 MG/DL (70-100); POTASSIUM SERUM 3.8 MEQ/L (3.5-5.1); SODIUM LEVEL 140 MEQ/L (136-145)
[2019-07-22] MEDS: ALBUTEROL 90 MCG/ACT 8GM HFA INHALER INH SCH ×2 (08:55→19:53)
[2019-07-22 10:00] VITALS: BP 138/78
--- NOTE | 2019-07-22 12:33 | IPNPDOC ---
Text Note Date of Service The patient was seen on 07/22/19. NOTE Subjective: Patient was seen and examined at the bedside. Currently, patient reports that he is doing well. He was seen sitting up in chair. Denies nausea, vomiting, any significant abdominal pain has reported having a bowel movement this morning has been tolerating his breakfast. Denies any shortness of breath, chest pain or palpitations. Objective: Vitals (See below) General: Lying in bed, no acute distress, comfortable, AAOx3 HEENT: NC, AT CVS: +S1S2 Lungs: Fair air entry b/l, -w/r/r Abdomen: Soft, ND, NT. Midline incision noted - dressing in place Extremities: - Edema, - Calf tenderness Assessment and plan: Partial gastric outlet obstruction - likely 2/2 malignancy 2/2 Well differentiated Adenocarcinoma - Clinically patient is asymptomatic, no nausea / vomiting, tolerating PO, has had a BM this morning - Lab work unrevealing - s/p exploratory laparotomy with biopsy of peritoneal nodules, Zachery-en-Y gastrojejunostomy on 07/17/2019 - Currently still on TPN - as per surgery - Surgery on consultation; appreciate their input - Consulted Oncology; awaiting evaluation HTN - BP remains well controlled - Will resume Cardizem PO / Losartan PO DLP - Will resume Rosuvastatin NIDDM2 - c/w ISS GI prophylaxis - c/w Protonix; will change to Protonix BID DVT prophylaxis - c/w TEDs/Sequentials VS,Fishbone, I+O VS, Fishbone, I+O Laboratory Tests 07/22/19 05:46 Vital Signs Date Time Temp Pulse Resp B/P (MAP) Pulse Ox O2 Delivery O2 Flow Rate FiO2 07/22/19 06:00 98.9 82 18 133/82 (99) 95 Room Air 07/20/19 14:00 2.0 I&O- Last 24 Hours up to 6 AM 07/22/19 06:00 Intake Total 1838 ml Output Total 2610 ml Balance -772 ml COURTNEY BURK MD Jul 22, 2019 12:33
[2019-07-22] MEDS: ROSUVASTATIN 10 MG TAB (CRESTOR) PO SCH (12:53)
[2019-07-22] MEDS: MONTELUKAST 10 MG TAB PO SCH (12:53)
[2019-07-22] MEDS: LOSARTAN 50 MG TAB PO SCH (12:53)
[2019-07-22] MEDS: PANTOPRAZOLE 40MG TAB (PROTONIX) PO SCH ×2 (12:53→21:35)
[2019-07-22 14:00] VITALS: BP 120/73
--- NOTE | 2019-07-22 14:06 | REP ---
CHEST, SINGLE VIEW: Single view of the chest is performed. COMPARISON: 01/08/2012. There is mild bibasilar interstitial fibrosis. There is no acute infiltrate. The heart is normal in size. There is some tortuosity of the thoracic aorta. Mediastinal silhouette is unchanged. Right arm PICC line is seen with the tip in either the central portion of the right brachiocephalic vein or the cephalic portion of the superior vena cava. A nasogastric tube traverses into the stomach. Electronically Signed by David Florez MD 07/22/2019 08:19 P
--- NOTE | 2019-07-22 16:29 | REP ---
Right upper extremity deep vein duplex ultrasound: The patient has a right upper extremity PICC line. By ultrasound. The PICC line is seen entering the right basilic vein. As it extends cephalic and enters the axillary vein and subclavian vein. There is occlusive thrombus in the right axillary vein and subclavian vein. The jugular vein appears patent. Bandage material just above the elbow limits the ability to perform ultrasound of this area. There is nonocclusive thrombus in the cephalic vein where an IV was recently removed. Impression: Occlusive thrombus in the distal right basilic vein extending in the axillary and subclavian veins. Nonocclusive thrombus in the cephalic vein where an IV was recently removed. Electronically Signed by David Richter MD 07/22/2019 04:20 P
--- NOTE | 2019-07-22 18:25 | MEDONCENPD ---
Date/Time of Encounter Date of Encounter: Jul 22, 2019 Encounter History of presenting illness: 84 y/o WM presented w/abdominal bloating, inability to tolerate oral diet seen by PCP and started on PPIs without any relief until the 07/07/19 CT a/p showed Gastric distension to the level of a prominent pylorus. s/p EGD by Dr. Cabrera- 07/07/19- ulcer in gastric antrum/pylorus with partial gastric outlet obstruction in last EGD done in May 2019, biopsies were benign, no cancerous cells W/ persistent symptoms and unable to tolerate even liquid/ soft diet with dilated stomach in CT scan abdomen admitted for repeat EGD and possible pyloric stent placement. 07/14/19-EGD- large amount of food residue in the gastric body and antrum, infiltrative and ulcerated circumferential mass at the pylorus. Additional biopsies were taken. This could not be traversed with a regular scope, though the pediatric scope was advanced with some difficulty. Dr. Cabrera attempted to place a stent through the area but was unsuccessful. The repeat biopsies are still pending at this time. Seen by Dr. Fang of Surgery. 07/16/19- MRI abd- Antropyloric mass lesion producing some degree of gastric outlet obstruction. No definite regional adenopathy. Cannot separate the posterior wall of the mass from the anterosuperior wall of the pancreatic head. There are incidental scattered small pancreatic cysts On 07/17/19- s/p Ex lap w/ bx of peritoneal nodules, Zachery-en-Y gastrojejonostomy for gastric outlet obstruction secondary to pyloric channel mass. Pathology as follows: Peritoneal nodule bx- metastatic adenocarcinoma from gastric primary. Negative for HER2. Recuperating well. On TPN Denies pain currently, had oral food today- tolerated well Denies any c/o Review of systems: Constitutional: No fevers, chills, night sweats, fatigue, malaise or weight loss Cardio-pulmonary: No chest pain, SOB, palpitations, dizziness. No cough. No hemoptysis Gastrointestinal: No pain, nausea, vomiting, constipation or diarrhea. 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 No headaches, dizziness, seizures, speech or visual disturbances. All other systems are negative unless otherwise specified in HPI. Past Medical/Surgical History: Diabetes mellitus, hypertension, hyperlipidemia Surgical History None Medications: Reviewed in EMR Allergies/Drug sensitivites: cephalexin (Verified Allergy, Intermediate, rash, 07/11/19) ciprofloxacin (Verified Allergy, Mild, rash, 07/11/19) doxycycline (Verified Allergy, Mild, rash, 07/11/19) Gadolinium-Containing Contrast Medi (Verified Allergy, Unknown, rash, 07/11/19) codeine (Verified Adverse Reaction, Unknown, didnt sleep for days, 07/11/19) Social History: Smoking- former smoker Alcohol- denies Drugs- denies Family History: no cancers or blood dyscrasias Vital Signs: Reviewed in EMR- stable Physical Exam: HEENT: Oral mucosa- pink and moist, no conjunctival pallor, sclera anicteric bilaterally LYMPHATICS: No cervical, supraclavicular, axillary or inguinal LAD LUNGS: Clear to auscultation b/l, resonant to percussion b/l HEART: Regular rhythm, no murmurs, no S3/S4, rubs ABDOMEN: Soft, no-tender, BS- normoactive, no hepato-splenomegaly EXTREMITIES: No edema bilaterally. Calves non-tender bilaterally SKIN/NAILS: No nail changes. No petechiae/ecchymosis or other skin changes MUSCULO-SKELETAL: Spine non-tender to palpation. Investigations: Reviewed in EMR Assessment/Plan: 1. 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 Anemia Check iron indices, add B12 folate- replenish any low stores component 2/2 surgical blood loss, IVF- consequent hemodilution, frequent phlebotomies monitor counts 3. DVT ppx- SCDs Follow up: With me upon d/c All of the above was relayed to the patient who was given an opportunity to ask questions that were answered to satisfaction. The patient voiced an understanding and agreed to proceed. Thank you for asking us to see this patient in consultation. It is always a privilege and pleasure to participate in the care of your patients. DAGO ROBERTS MD Jul 22, 2019 18:25
[2019-07-22] MEDS ORDERED: APIXABAN 5 MG TAB (ELIQUIS) As Ordered ONE (18:38)
[2019-07-22] MEDS: APIXABAN 5 MG TAB (ELIQUIS) PO SCH (18:41)
[2019-07-22 20:24] LABS: HEMATOCRIT 33.1 % (42.0-52.0)
[2019-07-22 20:47] LABS: FERRITIN 52 NG/ML (26-388); IRON (FE) 15 UG/DL (65-175); PERCENT SATURATION 6.3 % (19.7-50.0); TOTAL IRON BINDING CAPACITY 238 UG/DL (250-450)
[2019-07-22 20:53] LABS: FOLATE 7.9 NG/ML (>5.4)
[2019-07-22] MEDS ORDERED: HumaLOG INSULIN (NovoLOG) PER UNIT SC SCH (21:00)
--- NOTE | 2019-07-22 21:12 | IPNPDOC ---
Text Note Date of Service The patient was seen on 07/22/19. NOTE No acute events overnight. He has no complaints. Tolerating diet, pain is con trolled, no problems with the drain. Positive flatus, and BM. VSSAF NAD abd - soft, TTP appropriate, incision c/d/i, zeenat drain with serosanguinous output labs - below A) 84y/o male s/p RnY for gastric outlet obstruction and signs of metastatic adenocarcinoma P) flq diet amb in halls IS d/c PICC. likely d/c home tomorrow Lloyd Box DO VS,Fishbone, I+O VS, Fishbone, I+O Laboratory Tests 07/22/19 05:46 07/22/19 20:09 Vital Signs Date Time Temp Pulse Resp B/P (MAP) Pulse Ox O2 Delivery O2 Flow Rate FiO2 07/22/19 17:23 101 132/90 07/22/19 14:00 99.4 19 97 Room Air 07/20/19 14:00 2.0 I&O- Last 24 Hours up to 6 AM 07/22/19 06:00 Intake Total 1838 ml Output Total 2610 ml Balance -772 ml JOANIE BOX DO Jul 22, 2019 21:12
[2019-07-22 22:00] VITALS: BP 129/77
[2019-07-23 02:00] VITALS: BP 126/65
[2019-07-23 06:00] VITALS: BP 130/70
[2019-07-23] MEDS: ALBUTEROL 90 MCG/ACT 8GM HFA INHALER INH SCH (07:15)
[2019-07-23] MEDS: HumaLOG INSULIN (NovoLOG) PER UNIT SC SCH ×2 (07:30→12:46)
--- NOTE | 2019-07-23 07:37 | IPNPDOC ---
Text Note Date of Service The patient was seen on 07/23/19. NOTE No acute events overnight. He has no complaints. Tolerating diet, pain is con trolled, no problems with the drain. Positive flatus, and BM. VSSAF NAD abd - soft, TTP appropriate, incision c/d/i, zeenat drain with serosanguinous output labs - below A) 84y/o male s/p RnY for gastric outlet obstruction and signs of metastatic adenocarcinoma P) d/c drain soft diet amb in halls IS d/c home on soft diet, f/u with Dr. Fang in 1 week. Lloyd Box DO VS,Fishbone, I+O VS, Fishbone, I+O Laboratory Tests 07/22/19 20:09 Vital Signs Date Time Temp Pulse Resp B/P (MAP) Pulse Ox O2 Delivery O2 Flow Rate FiO2 07/23/19 06:00 98.2 67 18 130/70 (90) 94 Room Air 07/20/19 14:00 2.0 I&O- Last 24 Hours up to 6 AM 07/23/19 06:00 Intake Total 1410 ml Output Total 1710 ml Balance -300 ml JOANIE BOX DO Jul 23, 2019 07:37
[2019-07-23 09:00] VITALS: BP 108/66
[2019-07-23] MEDS: LOSARTAN 50 MG TAB PO SCH (09:00)
[2019-07-23] MEDS: PANTOPRAZOLE 40MG TAB (PROTONIX) PO SCH (09:13)
[2019-07-23] MEDS: APIXABAN 5 MG TAB (ELIQUIS) PO SCH (09:13)
[2019-07-23] MEDS: MONTELUKAST 10 MG TAB PO SCH (09:13)
[2019-07-23] MEDS: ROSUVASTATIN 10 MG TAB (CRESTOR) PO SCH (09:13)
[2019-07-23] MEDS ORDERED: ELIQ5TAB PO (10:34)
--- NOTE | 2019-07-23 12:49 | DS.PDOC ---
Discharge Summary General Date of Admission Jul 13, 2019 at 10:45 Date of Discharge 07/23/2019 Discharge Summary PROCEDURES PERFORMED DURING STAY: Exploratory laparotomy with biopsy of peritoneal nodules, Zachery-en-Y gastrojejunostomy on 07/17/[address] Erwin Fang ADMITTING DIAGNOSES / DISCHARGE DIAGNOSES: Partial gastric outlet obstruction - likely 2/2 malignancy 2/2 Well differentiated Adenocarcinoma RUE DVT - likely 2/2 PICC line HTN DLP NIDDM2 GI prophylaxis DVT prophylaxis COMPLICATIONS/CHIEF COMPLAINT: Nausea and vomiting HISTORY OF PRESENT ILLNESS: Patient is an 84-year-old male with a past medical history of diabetes mellitus, hypertension, hyperlipidemia was experiencing abdominal discomfort associated with regurgitation over the last years. Patient had imaging completed by his primary care provider if her revealed gastric outlet obstruction. Patient had an EGD completed by Dr. Cabrera which has revealed a very edematous pyloric ulceration. Patient was admitted to hospitalist service for further evaluation and treatment and surgery was called on consultation. HOSPITAL COURSE: Partial gastric outlet obstruction - likely 2/2 malignancy 2/2 Well differentiated Adenocarcinoma - Remains asymptomatic, no nausea / vomiting, tolerating PO, continues to have BMs - Lab work unrevealing - s/p exploratory laparotomy with biopsy of peritoneal nodules, Zachery-en-Y g astrojejunostomy on 07/17/2019 - s/p TPN; tolerating diet - Surgery on consultation; appreciate their input - Consulted Oncology; appreciate their input - Will have outpatient f/u with Surgery and Oncology RUE DVT - likely 2/2 PICC line - Duplex US RUE: Occlusive thrombus in the distal right basilic vein extending in the axillary and subclavian veins. Nonocclusive thrombus in the cephalic vein where an IV was recently removed. - PICC line has been discontinued - c/w Eliquis; provided discount card for Eliquis to ensure coverage for the next 30 days HTN - BP remains well controlled - c/w Cardizem PO / Losartan PO DLP - c/w Rosuvastatin NIDDM2 - c/w ISS GI prophylaxis - c/w Protonix; will change to Protonix BID DVT prophylaxis - c/w TEDs/Sequentials DISCHARGE MEDICATIONS: Please see below. ALLERGIES: Please see below. PHYSICAL EXAMINATION ON DISCHARGE: Vitals (See below) General: Lying in bed, no acute distress, comfortable, AAOx3 HEENT: NC, AT CVS: +S1S2 Lungs: Fair air entry b/l, no appreciable wheezing, rhonchi or rales Abdomen: Soft, ND, NT Extremities: - Edema, - Calf tenderness LABORATORY DATA: Please see below. ACTIVITY: [As tolerated]. DISCHARGE PLAN: Follow-up with primary care provider, Dr. Box and Dr. Haque within 7 days Remain complaint which remitted plan and medications Return to the ER if you experience any problems DISPOSITION: Home DISCHARGE CONDITION: [Stable]. TIME SPENT ON DISCHARGE: 35 minutes Vital Signs/I&Os Vital Signs Date Time Temp Pulse Resp B/P (MAP) Pulse Ox O2 Delivery O2 Flow Rate FiO2 07/23/19 09:00 70 108/66 07/23/19 06:00 98.2 18 94 Room Air 07/20/19 14:00 2.0 I&O- Last 24 Hours up to 6 AM 07/23/19 06:00 Intake Total 1410 ml Output Total 1710 ml Balance -300 ml Laboratory Data Labs 24H Laboratory Tests 2 07/22/19 18:17: Bedside Glucose (Misc Panel) 140H 07/22/19 20:09: Iron Level 15L, Total Iron Binding Capacity 238L, Transferrin % Saturation 6.3L, Ferritin 52, Carcinoembryonic Antigen < 0.5, Vitamin B12 Level 1385H, Folate 7.9 07/22/19 22:34: Bedside Glucose (Misc Panel) 105 07/23/19 05:42: Bedside Glucose (Misc Panel) 117H 07/23/19 11:27: Bedside Glucose (Misc Panel) 156H CBC/BMP Laboratory Tests 07/22/19 20:09 FSBS Laboratory Tests Test 07/22/19 18:17 07/22/19 22:34 07/23/19 05:42 07/23/19 11:27 Range/Units Bedside Glucose (Misc Panel) 140 105 117 156 83-110 MG/DL Discharge Medications Scheduled Albuterol Sulfate (Proair Hfa) 8.5 Gm Hfa.aer.ad, 2 PUFF INH BID, (Reported) Apixaban (Eliquis) 5 Mg Tablet, 5 MG PO BID take 2 tabs PO BID x 9 days, then take 1 tab PO bid Cyclosporine (Restasis) 0.05% Droperette, 1 DROP OU BID, (Reported) Diltiazem HCl (Diltiazem HCl) 60 Mg Tablet, 60 MG PO BID, (Reported) Metformin HCl (Metformin HCl ER) 500 Mg Tab.er.24h, 500 MG PO DAILY, (Reported) TAKES AT NOON Montelukast Sodium (Montelukast Sodium) 10 Mg Tablet, 10 MG PO DAILY, (Reported) Omeprazole (Omeprazole) 40 Mg Capsule.dr, 40 MG PO DAILY, (Reported) PATIENT AND STATE HE IS TAKING BOTH OMEPRAZOLE AND PANTOPRAZOLE Pantoprazole Sodium (Pantoprazole Sodium) 40 Mg Tablet.dr, 40 MG PO BID, (Reported) Polyethylene Glycol 3350 (Clearlax) 116 Gm Powder, 8.5 GM PO DAILY, (Reported) Rosuvastatin Calcium (Rosuvastatin Calcium) 20 Mg Tablet, 20 MG PO DAILY, (Reported) TAKES AT NOON Scheduled PRN Carboxymethylcellulose Sodium (Refresh Tears) 15 Ml Drops, 1 DROP OU QID PRN for DRY EYES, (Reported) Allergies Coded Allergies: cephalexin (Verified Allergy, Intermediate, rash, 07/11/19) ciprofloxacin (Verified Allergy, Mild, rash, 07/11/19) diatrizoate meglumine (Verified Allergy, Mild, itching, rashing, 07/16/19) oral contast for CT. Needing benadryl atleast 24 hours prior and 3 days after diatrizoate sodium (Verified Allergy, Mild, itching, rashing, 07/16/19) oral contast for CT. Needing benadryl atleast 24 hours prior and 3 days after doxycycline (Verified Allergy, Mild, rash, 07/11/19) codeine (Verified Adverse Reaction, Unknown, didnt sleep for days, 07/11/19) COURTNEY BURK MD Jul 23, 2019 12:49
[2019-08-01] MEDS ORDERED: APIXABAN 5 MG TAB (ELIQUIS) PO SCH (21:00)
== END 2019-07-23 13:32 | disposition home or self-care (01) | DRG 330 ==
LOC: M MSPAV 10:45
PROVIDERS: ADMIT Internal Medicine; ATTEND Internal Medicine
PROC: 0DBW0ZX Excision of Peritoneum, Open Approach, Diagnostic (ICD-10-PCS; 2019-07-17)
PROC: 0D1 Gastrointestinal System, Bypass (ICD-10-PCS; principal; 2019-07-17 07:30)
PROC: 02HV33Z Insertion of Infusion Device into Superior Vena Cava, Percutaneous Approach (ICD-10-PCS; 2019-07-18)
PROC: 3E0336Z Introduction of Nutritional Substance into Peripheral Vein, Percutaneous Approach (ICD-10-PCS; 2019-07-18)
DX: C78.6 Secondary malignant neoplasm of retroperitoneum and peritoneum (principal); K31.1 Adult hypertrophic pyloric stenosis; T82.868A Thrombosis due to vascular prosthetic devices, implants and grafts, initial encounter; I82.611 Acute embolism and thrombosis of superficial veins of right upper extremity; E11.9 Type 2 diabetes mellitus without complications; I10 Essential (primary) hypertension; E78.5 Hyperlipidemia, unspecified; D64.9 Anemia, unspecified; Z79.84 Long term (current) use of oral hypoglycemic drugs; Y83.1 Surgical operation with implant of artificial internal device as the cause of abnormal reaction of the patient, or of later complication, without mention of misadventure at the time of the procedure; Z79.899 Other long term (current) drug therapy; Z88.1 Allergy status to other antibiotic agents; Z88.5 Allergy status to narcotic agent; Z88.8 Allergy status to other drugs, medicaments and biological substances; Z91.041 Radiographic dye allergy status; Z87.891 Personal history of nicotine dependence; Z86.010 Personal history of colon polyps

== ENCOUNTER → 2019-07-28 | Outpatient (CLI) | payer MEDICARE, OTHER ==
[~2019-07-28] MED LIST changes: +CLEAPOW10 PO; +DILT1TAB12 PO; +ELIQ5TAB PO; +IBUP40TA PO; +METF-791 PO; +OMEP-221 PO; +PANT-23 PO; +REFR0.5D8 OU; +REST0.05 OU
--- NOTE | 2019-07-29 07:13 | REP ---
PET/CT: HISTORY: Staging gastric cancer. 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 COMPARISONS: Comparison MRI study July 16, 2019. Comparison CT study July 07, 2019. TECHNIQUE: 50 minutes following the intravenous injection of a 8.36 mCi dose of F-18 FDG, three-dimensional PET scintigraphy is acquired from the skull base to the proximal thighs. Triplanar noncontrast CT scanning is acquired through the same anatomic range for attenuation correction, and image registration with scan parameters optimized to minimize radiation exposure to the patient. PET scintigraphy and CT datasets were fused and displayed on a workstation with multiplanar and projection display capability. PET/CT FINDINGS: CT findings demonstrate residual postoperative intraperitoneal air in the upper abdomen and some fluid in the pelvis. There is air and fluid underlying the median laparotomy incision in the subcutaneous fat of the anterior abdominal wall in the midline. Gastrojejunostomy sutures are seen. The gastric distension noted previously has resolved. There is a subcentimeter pulmonary nodule in the left upper lobe perihilar level. This nodule shows mildly hypermetabolic uptake, maximum SUV value 2.71. There is no abnormal hilar or mediastinal hypermetabolic uptake. There is visible non-hypermetabolic uptake in a ground-glass opacity in the right middle lobe with maximum SUV value 1.27. No abnormal hypermetabolic uptake is seen within the liver. The antral pyloric gastric mass is hypermetabolic, maximum standard uptake value in this is 7.53. This hypermetabolic uptake does been appear to extend into the posteriorly adjacent pancreas. No other abnormal intra-abdominal hypermetabolic uptake is seen. There is some skeletal muscle variant uptake in the left hip. There is no evidence of skeletal hypermetabolic uptake to suggest a bony metastasis. There is postoperative hypermetabolic uptake in some inflamed fat beneath the laparotomy incision, 4.96. No mass lesion is seen here. IMPRESSION: The known malignant antral/pyloric gastric mass is hypermetabolic. Hypermetabolic uptake appears to extend into the posteriorly adjacent pancreas. There is a suspicious pulmonary nodule in the left upper lobe which is mildly hypermetabolic as well. Recent postoperative changes in the abdomen. Electronically Signed by Jorje Lyman MD 07/29/2019 08:39 A
== END ==
LOC: M PLARAD 11:16
PROVIDERS: ATTEND Internal Medicine Hematology & Oncology
DX: C26.9 Malignant neoplasm of ill-defined sites within the digestive system (principal); R91.1 Solitary pulmonary nodule
CPT/HCPCS: 78815; A9552

== ENCOUNTER → 2019-07-30 | Outpatient (CLI) | payer MEDICARE, OTHER ==
--- NOTE | 2019-07-30 15:02 | REPVR ---
PROCEDURE INFORMATION: Exam: CT Chest With Contrast Exam date and time: 07/30/2019 2:04 PM Age: 84 years old Clinical indication: Condition or disease; Other: Gastric CA; Additional info: Gastric CA staging TECHNIQUE: Imaging protocol: Computed tomography of the chest with intravenous contrast. 3D rendering: MIP and/or 3D reconstructed images were created by the technologist. Radiation optimization: All CT scans at this facility use at least one of these dose optimization techniques: automated exposure control; mA and/or kV adjustment per patient size (includes targeted exams where dose is matched to clinical indication); or iterative reconstruction. Contrast material: ISOVUE 370; Contrast volume: 75 ml; Contrast route: IV; COMPARISON: PT - PET/CT Skull/mid thigh 07/28/2019 1:15:03 PM The report from the previous exam was not immediately available. FINDINGS: Thyroid: There is a nonspecific heterogeneous 2.5 cm nodule rising from the posterior/inferior left thyroid gland. The nodule extends into the superior mediastinum. A follow-up nonemergent thyroid ultrasound is suggested if this has not been previously evaluated. Lungs: A nonspecific 12 mm pulmonary nodule is noted in the left upper lobe adjacent to the fissure. Minimal spiculation around the nodule is present. There is a 4 mm satellite nodule medial to the larger nodule. Metastatic disease is not excluded. An additional 11 mm mildly spiculated nodule is noted in the medial left upper lobe adjacent to the aortic arch. There is an 8 mm nodule or nodular scar in the right middle lobe. A 7 mm nodule is noted along the right major fissure, series 202, image 55. A 4 mm nodule is noted in the left lower lobe, series 202, image 69. Pleural space: Unremarkable. No pneumothorax. No pleural effusion. Heart: No significant cardiomegaly. No pericardial effusion. Aorta: Atherosclerotic calcifications are noted within the aorta and its branches. Lymph nodes: Multiple small non-specific mediastinal lymph nodes are present. No enlarged lymph nodes. Stomach and bowel: Postoperative changes of the stomach are noted. There is marked gastric wall thickening involving the gastric antrum and pylorus, likely representing known malignancy. Intraperitoneal space: Several punctate foci of free air are noted in the upper abdomen, compatible with recent abdominal surgery. Bones/joints: There is no acute fracture. Chronic posttraumatic deformity of the right scapular body is noted. Soft tissues: There is a partially visualized midline subcutaneous air fluid collection within the superior anterior abdominal wall. The imaged portion of the collection measures approximately 4.6 x 2.5 x 1.7 cm. A postoperative collection is most likely. IMPRESSION: 1. There is marked gastric wall thickening involving the gastric antrum and pylorus, likely representing known malignancy. 2. Postoperative changes involving the abdomen and abdominal wall 3. Multiple pulmonary nodules. Metastatic disease is possible. 4. Chronic findings as discussed above. COMMENTS: Consistent with the [employer]'s Incidental Findings Committee white paper (J Am Lary Radiol 2015): In patients aged 35 years and older with an incidental thyroid nodule equal to or greater than 1.[address], MRI or extrathyroidal US, further evaluation with dedicated thyroid US is recommended for patients with normal life expectancy and without comorbidities. For smaller nodules without suspicious features, no further evaluation or follow up is recommended. Electronically signed by: Kishor Ludwig On 07/30/2019 14:56:29 PM
== END ==
LOC: M RAD 13:22
PROVIDERS: ATTEND Internal Medicine Hematology & Oncology
DX: C26.9 Malignant neoplasm of ill-defined sites within the digestive system (principal); R91.8 Other nonspecific abnormal finding of lung field
CPT/HCPCS: 71260; Q9967

== ENCOUNTER 2019-08-07 13:59 | Outpatient (CLI) | payer MEDICARE, OTHER ==
[~2019-08-07] VITALS: Ht 168.9 cm; Wt 71.3 kg
[2019-08-07 14:30] VITALS: BP 131/73
[2019-08-07] MEDS ORDERED: FERRIC CARBOXYMALTOSE INJ 750 MG in NS 250 ML IV ONE (15:00)
[2019-08-07 16:00] VITALS: BP 130/64
[2019-08-07 16:35] VITALS: BP 137/71
== END 2019-08-07 16:35 | disposition home or self-care (01) ==
LOC: M INFU 13:59
PROVIDERS: ATTEND Internal Medicine Hematology & Oncology
DX: C16.9 Malignant neoplasm of stomach, unspecified (principal); Z88.5 Allergy status to narcotic agent; Z88.1 Allergy status to other antibiotic agents; Z88.8 Allergy status to other drugs, medicaments and biological substances
CPT/HCPCS: 96365; J1439

== ENCOUNTER → 2019-08-11 | Outpatient (CLI) | payer MEDICARE, OTHER ==
[~2019-08-11] MED LIST changes: +CAPE1TAB2 PO; +LIDOCAINE 1% MDV 20ML VIAL As Ordered ONE; +MIDAZOLAM INJ 2 MG/2 ML VIAL (J2250) As Ordered ONE; +VANCOMYCIN HCL 500 MG/10 ML VIAL (J3370) As Ordered ONE; +ceFAZolin 2 GM/D5W 50 ML IV BAG (J0690 PER 500MG) As Ordered ONE; +diphenhydrAMINE INJ 50MG/ML VIAL (J1200) As Ordered ONE; +fentaNYL 100 MCG/2 ML INJECTION (J3010) As Ordered ONE
--- NOTE | 2019-08-11 14:52 | IRHP ---
[facility] IR Pre-Procedure H & P General Date of Service: Aug 11, 2019 Procedure: Same Day Surgery Interval History and Physical I have seen the patient and reviewed last H & P performed within 30 days. There is no significant interval change. History of Present Illness Chief Complaint The patient is a 84-year-old male admitted with a reason for visit of Gastric Ca. PRE-PROCEDURE DIAGNOSIS: gastric ca HEART: normal rate. LUNGS: normal breathing at rest. ASA Classification ASA Classification: III-Severe systemic dis. Mallampati Score: II NPO: Yes Problems with prior sedation: No Obstructive Sleep Apnea: No Plan moderate sedation Allergies Coded Allergies: cephalexin (Verified Allergy, Intermediate, rash, 07/11/19) ciprofloxacin (Verified Allergy, Mild, rash, 07/11/19) diatrizoate meglumine (Verified Allergy, Mild, itching, rashing, 07/16/19) oral contast for CT. Needing benadryl atleast 24 hours prior and 3 days after diatrizoate sodium (Verified Allergy, Mild, itching, rashing, 07/16/19) oral contast for CT. Needing benadryl atleast 24 hours prior and 3 days after doxycycline (Verified Allergy, Mild, rash, 07/11/19) codeine (Verified Adverse Reaction, Unknown, didnt sleep for days, 07/11/19) Home Medications Scheduled Albuterol Sulfate (Proair Hfa), 2 PUFF INH BID, (Reported) Apixaban (Eliquis), 5 MG PO BID Cyclosporine (Restasis), 1 DROP OU BID, (Reported) Diltiazem HCl (Diltiazem HCl), 60 MG PO BID, (Reported) Metformin HCl (Metformin HCl ER), 500 MG PO DAILY, (Reported) Montelukast Sodium (Montelukast Sodium), 10 MG PO DAILY, (Reported) Omeprazole (Omeprazole), 40 MG PO DAILY, (Reported) Pantoprazole Sodium (Pantoprazole Sodium), 40 MG PO BID, (Reported) Polyethylene Glycol 3350 (Clearlax), 8.5 GM PO DAILY, (Reported) Rosuvastatin Calcium (Rosuvastatin Calcium), 20 MG PO DAILY, (Reported) Scheduled PRN Carboxymethylcellulose Sodium (Refresh Tears), 1 DROP OU QID PRN for DRY EYES, (Reported) VS, I&O, 24H, Fishbone Vital Signs/I&O Vital Signs Date Time Temp Pulse Resp B/P (MAP) Pulse Ox O2 Delivery O2 Flow Rate FiO2 08/11/19 14:35 57 16 100 Nasal Cannula 2 08/11/19 13:00 98.2 ALINA GANN MD Aug 11, 2019 14:52
--- NOTE | 2019-08-11 14:54 | POST-OPPD ---
Postoperative Procedure Note Date Of Procedure: Aug 11, 2019 Time Of Procedure: 14:52 PREOPERATIVE DIAGNOSIS: gastric ca. right arm venous thrombus POSTOPERATIVE DIAGNOSIS: same FINDINGS: patent left IJ. PROCEDURE: left side port SURGEON: mary ANESTHESIA: mod sed ESTIMATED BLOOD LOSS: < 5 ml COMPLICATIONS: none POSTOPERATIVE CONDITION: stable ALINA GANN MD Aug 11, 2019 14:54
[2019-08-11 16:35] VITALS: BP 145/79
--- NOTE | 2019-08-12 12:14 | REP ---
IR Ultrasound and fluoroscopy-guided port placement. IR Ultrasound of the neck. IR Moderate sedation. Clinical information: Stomach cancer. Right arm venous thrombosis. Physician: Dr. Still. Procedure: The patient was advised of the benefits, risks, and alternatives of the procedure and informed consent was obtained. A time-out was performed with verification of the patient's name, MRN, site of procedure and type of procedure to be performed. The patient was positioned in the supine position on the angiographic table. The site was prepped and draped in the usual sterile fashion. Moderate sedation was performed by the physician including the presence of an independent trained observer who assisted and monitored the patient's level of consciousness and physiologic status. Following the administration of fentanyl and Versed, the physician spent 45 minutes of continuous face to face time with the patient. Ultrasound of the neck reveals a patent and compressible left internal jugular vein. A robotic weld technician radiograph reveals no gross abnormality. The neck and anterior chest wall were anesthetized with lidocaine. The left internal jugular vein was accessed using a microintroducer needle under ultrasound guidance, via a lateral approach. An 018 wire was advanced into the superior vena cava, the needle was removed and a microsheath was placed. An Amplatz wire was then passed into the inferior vena cava. An incision at the internal jugular vein access site and anterior chest wall were made using a scalpel. An incision was made at the anterior chest wall. A small pocket was created using a combination of blunt and sharp dissection. A tunneling device was then used to pass the catheter from the pocket to the neck puncture site. An 8-[place]zeri Angio dynamics Smart power port was then positioned in the pocket. The catheter was then measured and cut. The introducer sheath was exchanged for a peel-away sheath. The catheter was passed through the peel-away sheath into the internal jugular vein and the peel-away sheath was removed. The port tip was positioned at the cavoatrial junction. The port was then accessed with a Garcia needle. The port flushes and aspirates well. The puncture site in the neck was closed. The chest wall incision was then closed with 2-0 Vicryl and 4-0 Monocryl. Glue and Steri-Strips were applied. A sterile dressing was then applied. The patient tolerated the procedure well and was returned to the PRU in stable condition. Estimated blood loss: <5 ml. Complications: None. Conclusion: 1. Successful placement of an 8-Azeri Angio dynamics Smart power port via the left internal jugular vein. The port is ready for immediate use. 2. Patient to follow up in IR clinic in 2 weeks. Thank you for this referral. Electronically Signed by Rashmi Still MD 08/12/2019 12:13 P
== END ==
LOC: M IRPRO 12:12
PROVIDERS: ATTEND Radiology Diagnostic Radiology
DX: C16.9 Malignant neoplasm of stomach, unspecified (principal); Z88.1 Allergy status to other antibiotic agents; Z88.8 Allergy status to other drugs, medicaments and biological substances; Z79.84 Long term (current) use of oral hypoglycemic drugs; Z79.899 Other long term (current) drug therapy
CPT/HCPCS: 36561; 99152; 99153; C1769; C1788; C1887; C1894; J1200; J1642; J1644; J2250; J3010; J3370

== ENCOUNTER 2019-08-14 12:11 | Outpatient (CLI) | payer MEDICARE, OTHER ==
[~2019-08-14] VITALS: Ht 167.6 cm; Wt 71.3 kg
[~2019-08-14 12:11] MED LIST changes: -LIDOCAINE 1% MDV 20ML VIAL As Ordered ONE; -MIDAZOLAM INJ 2 MG/2 ML VIAL (J2250) As Ordered ONE; -VANCOMYCIN HCL 500 MG/10 ML VIAL (J3370) As Ordered ONE; -ceFAZolin 2 GM/D5W 50 ML IV BAG (J0690 PER 500MG) As Ordered ONE; -diphenhydrAMINE INJ 50MG/ML VIAL (J1200) As Ordered ONE; -fentaNYL 100 MCG/2 ML INJECTION (J3010) As Ordered ONE
[2019-08-14 12:20] VITALS: BP 118/70
[2019-08-14] MEDS ORDERED: FERRIC CARBOXYMALTOSE INJ 750 MG in NS 250 ML IV ONE (12:45)
[2019-08-14] MEDS ORDERED: NS 1,000 ML IV SCH (12:45)
[2019-08-14 13:59] VITALS: BP 130/66
== END 2019-08-14 14:00 | disposition home or self-care (01) ==
LOC: M INFU 12:11
PROVIDERS: ATTEND Internal Medicine Hematology & Oncology
DX: C16.9 Malignant neoplasm of stomach, unspecified (principal); Z88.1 Allergy status to other antibiotic agents; Z91.041 Radiographic dye allergy status; Z88.5 Allergy status to narcotic agent
CPT/HCPCS: 96365; J1439

== ENCOUNTER → 2019-09-16 | Outpatient (CLI) | payer MEDICARE, OTHER ==
[~2019-09-16] MED LIST changes: +ONDA8TAB10 PO; +PROC10TA4 PO
--- NOTE | 2019-09-16 14:27 | REP ---
Right upper extremity duplex Doppler venous ultrasound. Real time compression and duplex Doppler evaluation of the right upper extremity deep venous system is performed. The right subclavian, jugular, axillary, brachial, basilic and cephalic veins are fully compressible where accessible with transducer pressure, and demonstrate no intraluminal thrombus and normal venous waveforms. There is no evidence of deep venous thrombosis. Impression: No evidence of deep venous thrombosis of the right upper extremity deep vein system. Electronically Signed by David Florez MD 09/16/2019 02:19 P
== END ==
LOC: M RAD 13:16
PROVIDERS: ATTEND Internal Medicine Hematology & Oncology
DX: Z86.718 Personal history of other venous thrombosis and embolism (principal)

== ENCOUNTER 2019-10-13 11:22 | Emergency (ER) | payer MEDICARE, OTHER ==
[~2019-10-13] VITALS: Ht 165.1 cm; Wt 72.4 kg
[~2019-10-13 11:22] MED LIST changes: +LOMO2.5T PO; -METF-791 PO; +METF-838 PO; +QUES4POW PO
[2019-10-13 12:12] LABS: BASO # 0.1 10^3/uL (0.0-0.2); BASO % 0.6 % (0.0-1.0); EOS # 0.1 10^3/uL (0.0-0.5); EOS % 0.8 % (0.0-3.0); HEMATOCRIT 37.5 % (42.0-52.0); HEMOGLOBIN 13.2 g/dl (13.5-17.5); LYMPH # 0.9 10^3/uL (1.5-5.0); MEAN CORPUSCULAR HEMOGLOBIN 33.4 pg (27.0-33.0); MEAN CORPUSCULAR HGB CONC 35.2 g/dl (32.0-36.5); MEAN CORPUSCULAR VOLUME 94.9 fl (80.0-96.0); MONO # 1.3 10^3/uL (0.0-0.8); NEUTROPHILS # 7.9 10^3/uL (1.5-8.5); NEUTROPHILS % 76.1 % (36.0-66.0); PLATELET COUNT, AUTOMATED 185 10^3/uL (150-450); RED BLOOD COUNT 3.95 10^6/uL (4.30-6.10); WHITE BLOOD COUNT 10.3 10^3/uL (4.0-10.0)
[2019-10-13] MEDS ORDERED: NS 500 ML IV ONE (12:30)
[2019-10-13 12:46] LABS: BLOOD UREA NITROGEN 14 MG/DL (7-18); CALCIUM LEVEL 7.8 MG/DL (8.8-10.2); CARBON DIOXIDE LEVEL 23 MEQ/L (21-32); CHLORIDE LEVEL 105 MEQ/L (98-107); CREATININE FOR GFR 0.94 MG/DL (0.70-1.30); GLOMERULAR FILTRATION RATE > 60.0 (>35); GLUCOSE, FASTING 153 MG/DL (70-100); POTASSIUM SERUM 2.8 MEQ/L (3.5-5.1); SODIUM LEVEL 138 MEQ/L (136-145)
[2019-10-13] MEDS ORDERED: POTASSIUM CHLORIDE 10% LIQ 20 MEQ/15 ML UDC PO ONE (13:00)
[2019-10-13] MEDS ORDERED: ELIQ5TAB PO (13:44)
[2019-10-13] MEDS ORDERED: APIXABAN 5 MG TAB (ELIQUIS) PO ONE (13:45)
[2019-10-13 13:55] VITALS: BP 146/81
--- NOTE | 2019-10-13 14:51 | REP ---
RIGHT UPPER EXTREMITY VENOUS ULTRASOUND WITH DOPPLER: HISTORY: Right arm tenderness. Known prior deep vein thrombosis. Off blood thinners for 1 week. Comparison sonography September 15, 2019. FINDINGS: There is occlusive thrombus seen in the subclavian and axillary vein segments. Occlusive thrombosis is seen in the basilic vein on the right as well. The brachial veins and the cephalic veins are anechoic and compressible with intact Doppler flow. Internal jugular vein is unremarkable. IMPRESSION: Positive study with occlusive thrombosis of the right subclavian, right axillary, and right basilic vein segments. This is a new finding compared with the prior study. Electronically Signed by Jorje Lyman MD 10/13/2019 04:57 P
--- NOTE | 2019-10-14 07:12 | ECGEPIP ---
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
[2019-10-17] MEDS ORDERED: K-TA10TA2 PO (15:16)
[2019-10-23] MEDS ORDERED: CAPE1TAB2 PO (10:28)
== END 2019-10-13 13:58 | disposition home or self-care (01) ==
LOC: M ED 11:22
DX: I82.B11 Acute embolism and thrombosis of right subclavian vein (principal); I82.A11 Acute embolism and thrombosis of right axillary vein; I82.611 Acute embolism and thrombosis of superficial veins of right upper extremity; E87.6 Hypokalemia; E11.9 Type 2 diabetes mellitus without complications; I10 Essential (primary) hypertension; E78.5 Hyperlipidemia, unspecified; K21.9 Gastro-esophageal reflux disease without esophagitis; K27.9 Peptic ulcer, site unspecified, unspecified as acute or chronic, without hemorrhage or perforation; K57.92 Diverticulitis of intestine, part unspecified, without perforation or abscess without bleeding; Z86.718 Personal history of other venous thrombosis and embolism; C16.9 Malignant neoplasm of stomach, unspecified; Z88.1 Allergy status to other antibiotic agents; Z91.041 Radiographic dye allergy status; Z88.5 Allergy status to narcotic agent; Z79.899 Other long term (current) drug therapy; Z79.84 Long term (current) use of oral hypoglycemic drugs

== ENCOUNTER → 2019-10-17 | Outpatient (CLI) | payer MEDICARE, OTHER ==
[~2019-10-17] MED LIST changes: +K-TA10TA2 PO
[2019-10-17 14:39] LABS: BLOOD UREA NITROGEN 9 MG/DL (7-18); CALCIUM LEVEL 7.9 MG/DL (8.8-10.2); CARBON DIOXIDE LEVEL 31 MEQ/L (21-32); CHLORIDE LEVEL 104 MEQ/L (98-107); GLOMERULAR FILTRATION RATE > 60.0 (>35); GLUCOSE, FASTING 133 MG/DL (70-100); POTASSIUM SERUM 2.7 MEQ/L (3.5-5.1); SODIUM LEVEL 142 MEQ/L (136-145)
== END ==
LOC: M LAB 12:19
PROVIDERS: ATTEND Physician Assistant Medical
DX: E87.6 Hypokalemia (principal)

== ENCOUNTER → 2019-11-12 | Outpatient (CLI) | payer MEDICARE, OTHER ==
[~2019-11-12] MED LIST changes: +PROHANCE 279.3MG/ML 15ML VIAL As Ordered ONE
--- NOTE | 2019-11-12 15:15 | REP ---
CT CHEST WITHOUT CONTRAST: HISTORY: Gastric carcinoma with metastasis. Comparison chest CT study July 30, 2019. CT FINDINGS: The spiculated nodule previously identified in the left upper lobe is a little larger, currently measuring 14 mm in greatest diameter, previously 9 mm by my measurement. There is a 11 mm nodule more medially in the left upper lobe which is unchanged. There are multiple other tiny subcentimeter pulmonary nodules which are unchanged. No new pulmonary nodule is appreciated. Scattered normal-sized mediastinal lymph nodes are again seen. Vascular calcification is noted. There is a left-sided Lblfoa-N-Xdai catheter placed in the superior vena cava. No adrenal abnormality is observed. No new infiltrate is seen. 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 No bony destructive lesion. IMPRESSION: The previously noted mildly hypermetabolic left upper lobe nodule appears slightly larger, 14 mm. Multiple other pulmonary nodules appear unchanged. Electronically Signed by Jorje Lyman MD 11/12/2019 05:19 P
--- NOTE | 2019-11-12 16:15 | REP ---
MRI ABDOMEN WITHOUT AND WITH INTRAVENOUS GADOLINIUM: HISTORY: Gastric carcinoma with mets. Pyloric channel mass. Restaging evaluation. GADOLINIUM ENHANCEMENT DOSE: 40 mL of intravenous ProHance. MR TECHNIQUE: Axial and coronal T1- and T2-weighted scans were obtained. Sequences include spin-echo, fast spin echo, diffusion weighted scans, in- and [id number] images, and dynamically acquired sequential post contrast T1-weighted fat sat images. Comparison study PET/CT July 28, 2019. Comparison MRI July 16, 2019. There is enhancing wall thickening and mass effect in the antral pyloric junction again noted extending to the posteriorly adjacent pancreas essentially unchanged from the MR study July 16, 2019. On today's diffusion weighted sequences this is associated with an area of restricted diffusion approximately 4.9 cm. The prior study did not include a diffusion imaging. There are small adjacent pancreatic cystic areas in the pancreatic head and body which are unchanged. There is no new adenopathy. No liver mass lesion is apparent. There is no evidence of biliary ductal dilation or pancreatic ductal dilation. No ascites is seen. IMPRESSION: Pyloric channel mass again noted essentially unchanged from the July 16, 2019 prior study. Electronically Signed by Jorje Lyman MD 11/12/2019 05:21 P
== END ==
LOC: M RAD 12:22
PROVIDERS: ATTEND Internal Medicine Hematology & Oncology
DX: C16.4 Malignant neoplasm of pylorus (principal); K86.2 Cyst of pancreas; C78.01 Secondary malignant neoplasm of right lung
CPT/HCPCS: 71250; 74183; A9576

== ENCOUNTER → 2020-02-12 | Outpatient (CLI) | payer MEDICARE, OTHER ==
[~2020-02-12] MED LIST changes: +GASTROGRAFIN SOLUTION 30ML (Q9963) As Ordered ONE; +ISOVUE-370 76% 100ML VIAL As Ordered ONE; -PROHANCE 279.3MG/ML 15ML VIAL As Ordered ONE
--- NOTE | 2020-02-26 07:04 | REP ---
RADIOLOGY NOTE CT CHEST WITH INTRAVENOUS (IV) CONTRAST HISTORY: Gastric cancer. COMPARISON: Chest CT study 11/12/2019. CT CONTRAST DOSE: 100 mL of intravenous Isovue-[address] FINDINGS: Preliminary digital price clerk radiograph shows an Infusaport catheter and some linear fibrosis in the right base. There is a nodule in the left lobe of the thyroid projecting into the thoracic inlet 2.2 cm in diameter. This is unchanged. Vascular calcification is noted. There are scattered mediastinal lymph nodes noted unchanged from the prior study of 11/12/2019. No definitely enlarged lymph nodes are seen. No pleural or pericardial effusion is seen. There is some vascular calcification. No adrenal abnormality is observed. Visualized upper abdominal structures are unremarkable. There are multiple bilateral pulmonary nodules several of which are noncalcified. The largest of these is in the left upper lobe of the lung. This is a somewhat spiculated nodule visualized on axial Image #30 of 113 in Series 204 of todays study. This measures 12-mm in greatest diameter today. It is essentially unchanged measuring 11 mm on the 11/12/2019 study. There is an additional spiculated nodule 12 mm in diameter in the left upper lobe displayed on Page 50 of 113 in Series 204 of todays exam. This is felt to be unchanged as well in the interval since the 11/12/2019 study. There are multiple scattered small subcentimeter nodules and bilateral subpleural nodules, which are also unchanged in the interval since the prior study. No new pulmonary nodule or mass lesion is observed. No bony destructive lesion is seen. IMPRESSION: Stable chest CT findings. No significant change from 11/12/2019. MTDD
--- NOTE | 2020-02-26 07:04 | REP ---
CT ABDOMEN AND PELVIS WITH INTRAVENOUS (IV) AND ORAL CONTRAST HISTORY: Gastric cancer. COMPARISON: Made with PET CT study from 07/28/2019. MRI abdomen is reviewed from 11/12/2019. CT CONTRAST DOSE: 100 mL of intravenous Isovue-[address] FINDINGS: Preliminary digital transformation specialist radiograph is unremarkable. The liver is normal in size and homogeneous in texture. No focal liver lesion is seen on dual-phase postcontrast images. No adrenal lesion is seen. There is a small sliding-type hiatal hernia. Spleen is unremarkable. Patient is status post gastrojejunostomy. No anastomotic or perianastomatic mass or nodularity is seen. There is some residual mass effect in the region of the gastric antrum and pylorus. The infiltrative mass in the distal antrum and pylorus of the stomach measures approximately 4.2 cm in transverse x 3.8 cm in anteroposterior dimension. It is similar in size to the 07/07/[address] study. There are stable celiac axis lymph nodes none pathologically enlarged. Postoperative calcifications are seen in the midline anterior abdominal wall. No abdominal mass lesion is observed. Distal jejunal anastomosis is unremarkable. There is a small left inguinal hernia transmitting a portion of the wall of the left colon at the descending sigmoid junction. There is some edema of the adjacent fat. This appears to be unchanged from the PET CT study of 07/28/2019. There is no evidence of large or small bowel obstruction. Urinary bladder is unremarkable. Prostate is somewhat enlarged, unchanged. Kidneys enhance symmetrically and are morphologically intact. IMPRESSION: Status post gastrojejunostomy for obstructive antral pyloric mass in the stomach. This mass is essentially unchanged in size. There are stable adjacent normal sized celiac axis lymph nodes. No evidence of obstruction or new mass or adenopathy seen. MTDD
== END ==
LOC: M RAD 12:08
PROVIDERS: ATTEND Internal Medicine Medical Oncology
DX: C16.3 Malignant neoplasm of pyloric antrum (principal); J84.10 Pulmonary fibrosis, unspecified; R91.8 Other nonspecific abnormal finding of lung field; K44.9 Diaphragmatic hernia without obstruction or gangrene; K40.90 Unilateral inguinal hernia, without obstruction or gangrene, not specified as recurrent
CPT/HCPCS: 71260; 74177; Q9963; Q9967

== ENCOUNTER → 2020-04-15 | Outpatient (CLI) | payer MEDICARE, OTHER ==
[~2020-04-15] MED LIST changes: -GASTROGRAFIN SOLUTION 30ML (Q9963) As Ordered ONE; -ISOVUE-370 76% 100ML VIAL As Ordered ONE
== END ==
LOC: M LABSMTC 09:38
PROVIDERS: ATTEND Anesthesiology
DX: Z01.812 Encounter for preprocedural laboratory examination (principal); Z20.828 Contact with and (suspected) exposure to other viral communicable diseases

== ENCOUNTER 2020-04-20 14:44 | Day surgery (SDC) | payer MEDICARE, OTHER ==
[~2020-04-20] VITALS: Ht 165.1 cm; Wt 71.7 kg
[~2020-04-20 14:44] MED LIST changes: +LIDOCAINE 1% MDV 20ML VIAL SQ PRN; +LR 1,000 ML IV ONE
[2020-04-20] MEDS ORDERED: KETOROLAC 60MG 2ML VIAL As Ordered ONE (16:16)
[2020-04-20] MEDS ORDERED: dexameTHASONE 4 MG/ML 1ML VIAL (J1100 PER 1MG) As Ordered ONE ×2 (16:16→16:23)
[2020-04-20] MEDS ORDERED: SUGAMMADEX SODIUM 500 MG/5 ML VIAL (BRIDION) As Ordered ONE (16:16)
[2020-04-20] MEDS ORDERED: ONDANSETRON 4MG/2ML VIAL As Ordered ONE (16:16)
[2020-04-20] MEDS ORDERED: propofoL 200 MG/20 ML VIAL As Ordered ONE (16:16)
[2020-04-20] MEDS ORDERED: fentaNYL 100 MCG/2 ML INJECTION (J3010) As Ordered ONE (16:16)
[2020-04-20] MEDS ORDERED: ACETAMINOPHEN 1000MG 100ML IV BTL (OFIRMEV) (J0131 PER 10MG) As Ordered ONE (16:16)
[2020-04-20] MEDS ORDERED: ROCURONIUM BROMIDE 50 MG/5 ML VIAL As Ordered ONE ×2 (16:16→19:56)
[2020-04-20] MEDS ORDERED: LIDOCAINE 2% 100MG/5ML SDV (FOR ANES.) As Ordered ONE (16:16)
[2020-04-20] MEDS ORDERED: MIDAZOLAM INJ 2MG/2ML VIAL (J2250 PER 1MG) As Ordered ONE (16:17)
[2020-04-20] MEDS ORDERED: BUPIVACAINE HCL 0.25% 30ML VIAL As Ordered ONE (18:05)
[2020-04-20] MEDS ORDERED: GLYCOPYRROLATE INJ 0.2 MG/ML 2 ML VIAL As Ordered ONE (19:09)
[2020-04-20] MEDS ORDERED: ePHEDrine SULFATE 25 MG/5 ML(5MG/ML) SYRINGE As Ordered ONE (19:34)
[2020-04-20] MEDS ORDERED: LR 1,000 ML IV SCH (21:45)
[2020-04-20] MEDS ORDERED: ONDANSETRON 4MG/2ML VIAL IV PRN (21:45)
[2020-04-20] MEDS ORDERED: oxyCODONE 5MG TAB PO PRN (21:45)
[2020-04-20] MEDS ORDERED: fentaNYL 100 MCG/2 ML INJECTION (J3010) IV PRN (21:45)
[2020-04-20] MEDS ORDERED: NORCO, ANEXSIA 5/325MG TABLET (HYDROcodone/ACETAMINOPHEN) PO PRN (22:00)
[2020-04-20] MEDS ORDERED: ACETAMINOPHEN TAB 650MG DOSE (2X325MG) PO PRN (22:00)
[2020-04-20 22:55] VITALS: BP 134/76
--- NOTE | 2020-04-24 15:23 | RO ---
OPERATIVE NOTE DATE OF OPERATION: 04/20/2020 PREOPERATIVE DIAGNOSIS: Left inguinal hernia. POSTOPERATIVE DIAGNOSIS: Sliding left inguinal hernia and multiple nodules of metastatic carcinoma. PROCEDURE: Robotic-assisted laparoscopic left inguinal hernia repair with mesh. The mesh utilized was a [employer] ProGrip reference code [id number], lot #[id number]. SURGEON: Dr. Fang ANESTHESIA: General. 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 He was found to have small metastatic deposits, and a resection was not undertaken, but a gastrojejunal bypass was created. He has been doing fairly well but has a left inguinal hernia that has become more symptomatic. He is now for a robotic-assisted laparoscopic left inguinal hernia repair. OPERATIVE PROCEDURE: The patient was brought to the operating room and placed on the table in a supine position. Thromboembolic deterrents (TEDs) and sequentials were utilized. Patient was placed under general endotracheal anesthesia. The patient's abdomen was prepped and draped in a sterile fashion. Palpation revealed that his distal gastric mass was palpable high in the epigastrium. His midline upper abdominal scar had healed well. Marcaine 0.25% was infiltrated at each of the trocar sites as needed. Initially a small incision was made in the left upper quadrant. A Veress needle was inserted, and after a positive hanging drop test, insufflation was begun; however, it appeared that only the left side of the abdominal wall was inflating, and pressures cecy rapidly, so the insufflation was stopped, and the Veress needle was removed. Veress needle was reinserted, and a hanging-drop test was positive. Insufflation was then begun again, and this time insufflation occurred normally with insufflation of the entire abdomen. An 8 mm robotic port was placed over a 5 mm scope and advanced to the abdominal wall into the abdomen without difficulty. Initial examination showed no evidence of trocar injury. There were some prominent loops of small bowel in the upper abdomen. Multiple small nodules of what was presumed to be metastatic tumor were noted on the anterior abdominal wall, though these were fairly widely scattered and small. There was evidence for some insufflation of gas into the extraperitoneal tissues, extending down even into the left lower quadrant. There was no definite indirect hernia sac identified in the left side of the abdomen. Two additional 8 mm ports were placed, one just to the left of midline and one in the right upper quadrant. There were no significant adhesions of the underlying tissues to the abdominal wall. Patient was tilted to an approximately 15-degree head-down position. The patient cart of the Propable XI robot was then brought into position, and the endoscope report was docked. Targeting took place to the left of the midline in the pelvis. The additional robotic arms were then docked to other two trocars. A fenestrated bipolar and a cauterizing scissors were then inserted. I then moved to the control console to proceed with the operation. Inspection showed that the sigmoid colon was lying in the left lower quadrant and left side of the pelvis, just at the edge of the anticipated site for a hernia defect. There appeared to be some extraperitoneal gas in the inguinal area. There was no definite hernia sac identified protruding through the abdominal wall. There were a couple of very small, 2-3 mm nodules on the peritoneal surface in the pelvis. There was no sign of hernia on the right. Initially a peritoneal flap was made by incising the peritoneum, beginning with the medial umbilical ligament and extending laterally and then inferior toward the anterior-superior iliac spine. A flap was developed. Because of some preperitoneal carbon dioxide in this area, the dissection was actually aided. The flap was developed, working from superior to inferior. There was some preperitoneal fat that appeared to be herniated slightly into a hernia defect. There was actually quite a large indirect hernia fascial defect. It was clear that this extended through the external inguinal ring and inferiorly toward the scrotum. As there was no definite hernia sac, it was clear that this must represent a sliding hernia with the sigmoid colon herniating through this defect. The preperitoneal space was developed nicely to allow placement of a piece of mesh. The iliopubic tract was clearly identified medially. The vas deferens was identified. There was no evidence of a direct sac. I elected to close the hernia defect. A 1-0 nonabsorbable V-Loc suture was selected. This was used to close the fascia of the hernia defect, working from lateral toward the medial aspect and then coming back lateral to lock off the suture. Care was taken to place sutures across the defect, taking small longitudinal bites of tissue rather than taking larger bites and risking injury to more external structures. A 10 x 15 cm piece of [employer] ProGrip mesh was then selected. This was trimmed slightly at the corners. This was inserted into the abdomen and then placed into the preperitoneal space. This was unfolded and centered over the area of the sutured hernia defect. This was unfolded, and the adherent side was gently pressed into the surrounding tissues. A 2-0 Vicryl was inserted, and a single suture was placed from the mesh in the lower inner aspect of the mesh, suturing this to the iliopubic tract. A second suture was placed in the upper-outer corner of the mesh, suturing this to the overlying abdominal fascia. The peritoneal flap was then closed beginning laterally and suturing toward the middle using an absorbable 2-0 V-Loc suture. As the closure of the flap progressed, the patient was returned toward a flat position, and the intra-abdominal pressure was reduced to reduce the amount of gas that would be left in the preperitoneal space. The closure was completed and the needle was removed. The robotic instruments were removed, and the robot was undocked and withdrawn. The abdomen was completely deflated and the trocars were removed. I returned to the patient's side, and the incisions were closed with buried sutures of 4-0 Vicryl and Steri-Strips. Light dressings were applied. The patient tolerated the procedure well without apparent complication. He was awakened in the operating room, extubated, and moved to the recovery room in stable condition.
== END 2020-04-20 22:55 | disposition home or self-care (01) ==
LOC: M SDC 14:44
PROVIDERS: ATTEND Surgery
DX: K40.90 Unilateral inguinal hernia, without obstruction or gangrene, not specified as recurrent (principal); R19.07 Generalized intra-abdominal and pelvic swelling, mass and lump; I10 Essential (primary) hypertension; E78.00 Pure hypercholesterolemia, unspecified; E11.9 Type 2 diabetes mellitus without complications; C25.9 Malignant neoplasm of pancreas, unspecified; C34.91 Malignant neoplasm of unspecified part of right bronchus or lung; J44.9 Chronic obstructive pulmonary disease, unspecified; Z79.01 Long term (current) use of anticoagulants; Z79.84 Long term (current) use of oral hypoglycemic drugs; Z79.899 Other long term (current) drug therapy; Z87.891 Personal history of nicotine dependence; Z88.1 Allergy status to other antibiotic agents; Z88.5 Allergy status to narcotic agent; Z88.8 Allergy status to other drugs, medicaments and biological substances; Z96.1 Presence of intraocular lens; Z98.41 Cataract extraction status, right eye; Z98.42 Cataract extraction status, left eye
CPT/HCPCS: 49650; C1781; J0131; J1100; J1885; J2250; J2405; J3010; S2900

== ENCOUNTER → 2020-05-31 | Outpatient (CLI) | payer MEDICARE, OTHER ==
[~2020-05-31] MED LIST changes: +GASTROGRAFIN SOLUTION 30ML (Q9963) As Ordered ONE; +ISOVUE-370 76% 100ML VIAL As Ordered ONE; -LIDOCAINE 1% MDV 20ML VIAL SQ PRN; -LR 1,000 ML IV ONE; -MONT10TA4 PO; +MONT5TAB2 PO
--- NOTE | 2020-05-31 13:49 | REP ---
INDICATION: MET GASTRIC CA COMPARISON: 02/12/2020-07/30/2019 TECHNIQUE: Axial contrast enhanced images from the thoracic inlet to the upper abdomen with coronal and sagittal reformations using 100 ml Isovue 370 intravenous contrast material. This CT examination was performed using the following dose reduction techniques: Automated exposure control, adjustment of mA and/or kv according to the patient's size, and use of iterative reconstruction technique. FINDINGS: The 2 previously identified dominant nodules along the medial left upper lobe measuring 12 mm (image 32) and the multinodular lesion along the periphery of the left upper lobe (images 53-56) measuring roughly 14 mm transverse diameter remain stable. Few scattered smaller nodules and focal areas of scarring are also identified and stable. No new consolidation or suspicious nodule/mass lesion appreciated. No effusion. No pneumothorax. Enhancing nodule in the left thyroid lobe remains unchanged. Further evaluation of the mediastinum demonstrates small stable nonspecific lymph nodes. Atherosclerotic changes to the thoracic aorta and coronary arteries again noted without aortic aneurysm or dissection. No cardiomegaly or pericardial effusion. Hiatal hernia at the gastroesophageal junction remains stable. [id number] again identified with tip in the SVC. Surrounding musculoskeletal structures are intact and without acute osseous abnormality. IMPRESSION: 1. Stable nodular lesions in the left lobe unchanged compared through 11/12/2019. Smaller scattered ill-defined nodules and scarring are also stable. No new suspicious lesions are appreciated. 2. Further nonacute findings as above including left thyroid nodule and atherosclerotic changes. <Electronically signed by Tarik Walden > 05/31/20 [id number]
--- NOTE | 2020-05-31 13:58 | REP ---
INDICATION: MET GASTRIC CA. COMPARISON: 02/12/2020 TECHNIQUE: Axial contrast-enhanced images from the lung bases to the pubic symphysis using 100 cc Isovue 370 intravenous contrast material. Delayed images of the abdomen along with coronal and sagittal reformations obtained.. This CT examination was performed using the following dose reduction techniques: Automated exposure control, adjustment of mA and/or kv according to the patient's size, and the use of iterative reconstruction technique. FINDINGS: Moderate hiatal hernia and evidence for prior diverting gastrojejunostomy again noted and stable. Mass involving the antrum and pyloric region of the stomach measuring roughly 4.6 cm in length and 4 cm diameter appears relatively unchanged. No significant surrounding inflammatory stranding or obvious adenopathy identified. Liver demonstrates subtle vague hyperenhancing foci primarily identified within the right lobe which cannot be further characterized or evaluated. Spleen, pancreas, gallbladder, bilateral adrenal glands and kidneys are relatively normal/stable. Incidental 1 cm right renal cyst again noted. Visualized small and large bowel and not including the above known gastric lesion, demonstrates no evidence for obstruction or acute inflammatory process. Scattered colonic and sigmoid diverticula noted without acute diverticulitis. Pelvis demonstrates normal bladder and heterogeneous prostatomegaly with the prostate gland measuring 5.5 cm maximal diameter. No ascites. No free air. No obvious intraperitoneal or retroperitoneal adenopathy. Atherosclerotic changes to the aorta and vasculature noted without aneurysm or dissection. Musculoskeletal structures demonstrate age-related degenerative changes. IMPRESSION: 1. Gastric mass appears essentially unchanged and without obvious metastasis or adenopathy. 2. Subtle vague hyperenhancing areas within the liver cannot be further evaluated and may warrant further investigation to exclude the possibility of metastasis. 3. Further chronic nonacute findings as described above including simple right renal cyst and prostatomegaly. <Electronically signed by Tarik Walden > 05/31/20 [id number]
== END ==
LOC: M RAD 11:34
PROVIDERS: ATTEND Internal Medicine Medical Oncology
DX: C16.9 Malignant neoplasm of stomach, unspecified (principal); R91.8 Other nonspecific abnormal finding of lung field; K44.9 Diaphragmatic hernia without obstruction or gangrene; K40.90 Unilateral inguinal hernia, without obstruction or gangrene, not specified as recurrent; E07.9 Disorder of thyroid, unspecified
CPT/HCPCS: 71260; 74177; Q9963; Q9967

== ENCOUNTER → 2020-06-23 | Outpatient (CLI) | payer MEDICARE, OTHER ==
[~2020-06-23] MED LIST changes: -GASTROGRAFIN SOLUTION 30ML (Q9963) As Ordered ONE; -ISOVUE-370 76% 100ML VIAL As Ordered ONE
--- NOTE | 2020-06-23 09:51 | REP ---
INDICATION: LIVER LESION ABN CT IMAGING COMPARISON: None. TECHNIQUE: Real time zeng scale ultrasound examination using curved array transducer. FINDINGS: Liver is somewhat limited in evaluation due to its position. However liver appears essentially normal in contour, size, and echogenicity without significant focal hepatic lesions identified. There is suggestion for a 1.8 cm hyperechoic area within the right lobe which may reflect the finding on recent CT but is otherwise nonspecific in appearance. Pancreas is incompletely evaluated due to interposed bowel gas. The gallbladder is normal and without gallstones, wall thickening, or pericholecystic fluid. No biliary ductal dilatation is appreciated and the common bile duct measures 3.7 mm diameter. Right kidney is normal in reniform shape without hydronephrosis and measures 11.1 x 4.1 x 4.8 cm. No ascites in the visualized right upper quadrant. IMPRESSION: 1. Limited evaluation of the liver due to position and associated technical factors. Small vague 1.8 cm hyperechoic area in the right lobe may correlate with recent CT findings and is otherwise nonspecific. Its appearance by CT and current ultrasound are relatively benign. However, given the patient's history of malignancy a 6 month follow-up CT of the abdomen may be warranted. <Electronically signed by Tarik Walden > 06/23/20 [id number]
== END ==
LOC: M RAD 07:18
PROVIDERS: ATTEND Internal Medicine Medical Oncology
DX: C16.9 Malignant neoplasm of stomach, unspecified (principal)

== ENCOUNTER → 2020-09-28 | Outpatient (CLI) | payer MEDICARE, OTHER ==
[~2020-09-28] MED LIST changes: +GASTROGRAFIN SOLUTION 30ML (Q9963) As Ordered ONE; +IBUP1TAB5 PO; -IBUP40TA PO; +ISOVUE-370 76% 100ML VIAL As Ordered ONE; +MONT10TA10 PO; -MONT5TAB2 PO; +ORAL0.1P MT
--- NOTE | 2020-09-28 11:36 | REP ---
INDICATION: GASTRIC CA COMPARISON: Multiple the latest 05/31/2020 TECHNIQUE: Standard helical technique after the administration of 100 cc Isovue 370 intravenously FINDINGS: The mediastinum and pulmonary junior are stable. Nonenlarged lymph nodes are noted status quo. There are no pleural or pericardial effusions. There is no change in appearance of the osseous structures. Evaluation of the lung myers shows an irregular nodular density in the posterior segment of the left upper lobe which abuts the superior lingula and again measures approximately 1.4 cm in its greatest axis. This appears stable. The spiculated nodule seen previously in the para mediastinal left upper lobe is also unchanged again measuring approximately 1.2 cm in its greatest dimension. Other stable subcentimeter sized nodules are again seen scattered throughout both lung myers. There is no evidence of a definite new abnormal nodule, mass, or opacity. IMPRESSION: Stable CT examination of the chest with findings as described above. <Electronically signed by Kevan Berrios > 09/28/20 [id number]
--- NOTE | 2020-09-28 11:43 | REP ---
INDICATION: GASTRIC CA. COMPARISON: Multiple the latest 05/31/2020 TECHNIQUE: Standard helical technique after the intravenous administration of 100 cc Isovue 370 and oral bowel preparatory contrast administration. FINDINGS: The liver, gallbladder, and spleen are unchanged. The pancreas, adrenal glands, and kidneys are unchanged. The abdominal aorta and para aortic regions are unchanged. There is no evidence of free fluid or free air. There is an unchanged abnormal soft tissue mass density in the distal stomach antral region extending toward the duodenum. There is no evidence of a complete gastric outlet obstruction. There are postoperative changes seen in the abdomen status quo. There is no significant change in appearance of the imaged osseous structures. IMPRESSION: No significant change compared to the prior exam with findings as described above. <Electronically signed by Kevan Berrios > 09/28/20 [id number]
== END ==
LOC: M RAD 09:36
PROVIDERS: ATTEND Internal Medicine Medical Oncology
DX: C16.9 Malignant neoplasm of stomach, unspecified (principal)
CPT/HCPCS: 71260; 74177; Q9963; Q9967

== ENCOUNTER → 2021-02-28 | Outpatient (CLI) | payer MEDICARE, OTHER ==
[~2021-02-28] MED LIST changes: +COVI100V IM; +COVI30VI IM; +ELIQ2.5T PO; +OMEP40CA4 PO; -OMEP40CA97 PO
--- NOTE | 2021-02-28 15:42 | REP ---
INDICATION: GASTRIC CA COMPARISON: 09/28/2020 TECHNIQUE: Axial contrast enhanced images from the thoracic inlet to the upper abdomen using 100 ml Isovue 370 intravenous contrast material followed by CT of the abdomen and pelvis. Coronal and sagittal reformations obtained. This CT examination was performed using the following dose reduction techniques: Automated exposure control, adjustment of mA and/or kv according to the patient's size, and use of iterative reconstruction technique. FINDINGS: 2.5 cm multinodular lesion in the peripheral left upper lobe and 1.6 cm lesion just lateral to the thoracic aortic arch in the medial left upper lobe consistent with metastatic foci have increased in size. Small scattered noncalcified nodules are also identified measuring up to 4 mm as well as small chronic appearing interstitial changes. Underlying chronic emphysematous disease with bronchiectasis noted. No effusion. No pneumothorax. Mediastinal and hilar lymph nodes measure up to roughly 15 mm. Thoracic aorta, pulmonary vasculature, and heart/pericardium are stable with atherosclerotic changes again noted. No pericardial effusion. Stable complex nodule in the left thyroid lobe is unchanged. Upper abdomen demonstrates large mass involving the distal stomach/pylorus measuring greater than 5.3 x 4.4 cm. IMPRESSION: 1. Two dominant metastatic foci increased in size from prior examination with associated reactive mediastinal/hilar adenopathy again noted. 2. Mass in the distal stomach consistent with the given history of gastric carcinoma. <Electronically signed by Tarik Walden > 02/28/21 [id number]
--- NOTE | 2021-02-28 15:49 | REP ---
INDICATION: GASTRIC CA. COMPARISON: 09/28/2020 TECHNIQUE: Axial contrast-enhanced images from the lung bases to the pubic symphysis using oral and 100 cc Isovue 370 intravenous contrast material. Delayed images of the abdomen along with coronal and sagittal reformations obtained. This CT examination was performed using the following dose reduction techniques: Automated exposure control, adjustment of mA and/or kv according to the patient's size, and the use of iterative reconstruction technique. FINDINGS: Large mass involving the distal stomach from the antrum to the level of the pylorus measures approximately 5.9 x 4.2 x 4.6 cm and appears increased in size from prior examination. The proximal portion of the stomach is moderately distended with oral contrast material and there is evidence for prior surgical procedure involving the mid stomach. Oral contrast extends into the small bowel which likely excludes complete gastric obstruction. Lesion appears to be somewhat inseparable from the adjacent head of the pancreas. Remainder of the pancreas is relatively normal/age-appropriate. Liver, spleen, gallbladder, bilateral adrenal glands and kidneys are normal. The small and large bowel is without obstruction. Colonic diverticulosis noted without acute diverticulitis. Normal terminal ileum and cecum identified in the right lower quadrant. Pelvis demonstrates normal bladder and enlarged prostate gland with mild mass effect on the base of the bladder. No ascites. No free air. No significant intraperitoneal or retroperitoneal adenopathy. Abdominal aorta and vasculature demonstrates atherosclerotic changes without aneurysm or dissection. Musculoskeletal structures are intact and without acute osseous abnormality. IMPRESSION: 1. Enlarging mass involving the distal stomach which is somewhat inseparable from the adjacent head of the pancreas. No obvious significant adjacent adenopathy, ascites, or intra-abdominal metastatic foci identified. 2. Chronic nonacute findings as described above. <Electronically signed by Tarik Walden > 02/28/21 [id number]
== END ==
LOC: M RAD 13:12
PROVIDERS: ATTEND Internal Medicine Medical Oncology
DX: C16.9 Malignant neoplasm of stomach, unspecified (principal)
CPT/HCPCS: 71260; 74177; Q9963; Q9967

== ENCOUNTER → 2021-04-27 | Outpatient (CLI) | payer MEDICARE, OTHER ==
[~2021-04-27] MED LIST changes: -GASTROGRAFIN SOLUTION 30ML (Q9963) As Ordered ONE; -ISOVUE-370 76% 100ML VIAL As Ordered ONE; +LOSA50TA28 PO; -LOSA50TA88 PO; -MONT10TA10 PO; +MONT10TA97 PO; -OMEP-221 PO; +OMEP40CA5 PO; +ONDA-84 PO; -ONDA8TAB10 PO; +OXYC-141 PO; +OXYC1TAB23 PO; -PROC10TA4 PO; +PROC10TA5 PO
== END ==
LOC: M ONCR 12:44
PROVIDERS: ATTEND General Practice
DX: C16.9 Malignant neoplasm of stomach, unspecified (principal); R10.13 Epigastric pain; K21.9 Gastro-esophageal reflux disease without esophagitis; Z87.891 Personal history of nicotine dependence; Z88.5 Allergy status to narcotic agent; Z88.1 Allergy status to other antibiotic agents; Z79.899 Other long term (current) drug therapy

== ENCOUNTER 2021-05-24 12:31 | Outpatient (RCR) | payer MEDICARE, OTHER ==
[~2021-05-24 12:31] MED LIST changes: -LOSA50TA28 PO; +LOSA50TA88 PO; +MONT10TA10 PO; -MONT10TA97 PO; +OMEP-221 PO; -OMEP40CA5 PO; -ONDA-84 PO; +ONDA8TAB10 PO; -OXYC-141 PO; +PROC10TA4 PO; -PROC10TA5 PO
== END 2021-05-27 ==
LOC: M ONCR 12:31
PROVIDERS: ATTEND General Practice
DX: C16.2 Malignant neoplasm of body of stomach (principal)

== ENCOUNTER → 2021-06-20 | Outpatient (CLI) | payer MEDICARE, OTHER ==
[~2021-06-20] MED LIST changes: +GASTROGRAFIN SOLUTION 30ML (Q9963) As Ordered ONE; +ISOVUE-370 76% 100ML VIAL As Ordered ONE; +LOSA50TA28 PO; -LOSA50TA88 PO; -MONT10TA10 PO; +MONT10TA97 PO; -OMEP-221 PO; +OMEP40CA5 PO; +ONDA-84 PO; -ONDA8TAB10 PO; -PROC10TA4 PO; +PROC10TA5 PO
== END ==
LOC: M RAD 08:34
PROVIDERS: ATTEND Internal Medicine Medical Oncology
DX: C16.9 Malignant neoplasm of stomach, unspecified (principal)
CPT/HCPCS: 71260; 74160; Q9963; Q9967

== ENCOUNTER → 2021-06-29 | Outpatient (CLI) | payer MEDICARE, OTHER ==
[~2021-06-29] MED LIST changes: -GASTROGRAFIN SOLUTION 30ML (Q9963) As Ordered ONE; -ISOVUE-370 76% 100ML VIAL As Ordered ONE; +PROHANCE 279.3MG/ML 15ML VIAL As Ordered ONE
== END ==
LOC: M RAD 14:34
PROVIDERS: ATTEND Internal Medicine Medical Oncology
DX: C16.9 Malignant neoplasm of stomach, unspecified (principal)
CPT/HCPCS: 74183; A9576

== ENCOUNTER → 2021-08-24 | Outpatient (CLI) | payer MEDICARE, OTHER ==
[~2021-08-24] MED LIST changes: +OXYC-141 PO; +OXYC20TA2 PO; -PROHANCE 279.3MG/ML 15ML VIAL As Ordered ONE
== END ==
LOC: M ONCR 12:47
PROVIDERS: ATTEND General Practice
DX: C16.2 Malignant neoplasm of body of stomach (principal); Z92.3 Personal history of irradiation; Z87.891 Personal history of nicotine dependence; Z88.1 Allergy status to other antibiotic agents; Z88.5 Allergy status to narcotic agent; Z88.8 Allergy status to other drugs, medicaments and biological substances